=== PATIENT | female | born 1940 | race African-American/Black ===

== ENCOUNTER 2016-06-11 09:48 | Outpatient (RCR) ==
[2014-10-14 23:07] VITALS: BMI 28.3
[2016-07-10 13:25] VITALS: BP 144/60
== END 2016-07-10 ==
LOC: PUL.REHAB 09:48
PROVIDERS: ATTEND Emergency Medicine
DX: J44.9 Chronic obstructive pulmonary disease, unspecified (principal)

== ENCOUNTER 2016-07-11 07:55 | Outpatient (RCR) ==
[2014-10-14 23:07] VITALS: BMI 28.3
[2016-08-07 13:27] VITALS: BP 140/62
== END 2016-08-07 ==
LOC: PUL.REHAB 07:55
PROVIDERS: ATTEND Emergency Medicine
DX: J44.9 Chronic obstructive pulmonary disease, unspecified (principal)

== ENCOUNTER 2016-08-08 09:39 | Outpatient (RCR) ==
[2014-10-14 23:07] VITALS: BMI 28.3
[2016-09-06 13:16] VITALS: BP 148/66
== END 2016-09-07 ==
LOC: PUL.REHAB 09:39
PROVIDERS: ATTEND Emergency Medicine
DX: J44.9 Chronic obstructive pulmonary disease, unspecified (principal)

== ENCOUNTER 2016-09-08 07:00 | Outpatient (RCR) ==
[2014-10-14 23:07] VITALS: BMI 28.3
[2016-10-04 13:26] VITALS: BP 154/62
== END 2016-10-07 ==
LOC: PUL.REHAB 07:00
PROVIDERS: ATTEND Emergency Medicine
DX: J44.9 Chronic obstructive pulmonary disease, unspecified (principal)

== ENCOUNTER 2016-10-08 09:31 | Outpatient (RCR) ==
[2014-10-14 23:07] VITALS: BMI 28.3
[2016-11-06 13:18] VITALS: BP 132/58
== END 2016-11-07 ==
LOC: PUL.REHAB 09:31
PROVIDERS: ATTEND Emergency Medicine
DX: J44.9 Chronic obstructive pulmonary disease, unspecified (principal)

== ENCOUNTER 2016-11-08 06:57 | Outpatient (RCR) ==
[2014-10-14 23:07] VITALS: BMI 28.3
[2016-12-06 13:11] VITALS: BP 136/64
== END 2016-12-07 ==
LOC: PUL.REHAB 06:57
PROVIDERS: ATTEND Emergency Medicine
DX: J44.9 Chronic obstructive pulmonary disease, unspecified (principal)

== ENCOUNTER 2016-12-10 07:58 | Outpatient (RCR) ==
[2014-10-14 23:07] VITALS: BMI 28.3
[2017-01-03 13:23] VITALS: BP 142/58
== END 2017-01-07 ==
LOC: PUL.REHAB 07:58
PROVIDERS: ATTEND Emergency Medicine
DX: J44.9 Chronic obstructive pulmonary disease, unspecified (principal)

== ENCOUNTER 2017-01-08 07:22 | Outpatient (RCR) ==
[2014-10-14 23:07] VITALS: BMI 28.3
[2017-02-07 13:10] VITALS: BP 138/60
== END 2017-02-07 ==
LOC: PUL.REHAB 07:22
PROVIDERS: ATTEND Emergency Medicine
DX: J44.9 Chronic obstructive pulmonary disease, unspecified (principal)

== ENCOUNTER 2017-02-08 08:42 | Outpatient (RCR) ==
[2014-10-14 23:07] VITALS: BMI 28.3
[2017-02-26 14:01] VITALS: BP 172/68
== END 2017-03-09 ==
LOC: PUL.REHAB 08:42
PROVIDERS: ATTEND Emergency Medicine
DX: J44.9 Chronic obstructive pulmonary disease, unspecified (principal)

== ENCOUNTER 2017-04-10 09:01 | Outpatient (RCR) ==
[2014-10-14 23:07] VITALS: BMI 28.3
[2017-05-09 12:57] VITALS: BP 148/52
== END 2017-05-09 ==
LOC: PUL.REHAB 09:01
PROVIDERS: ATTEND Emergency Medicine
DX: J44.9 Chronic obstructive pulmonary disease, unspecified (principal)

== ENCOUNTER 2017-05-10 07:16 | Outpatient (RCR) ==
[2014-10-14 23:07] VITALS: BMI 28.3
[2017-06-06 12:54] VITALS: BP 144/58
== END 2017-06-09 ==
LOC: PUL.REHAB 07:16
PROVIDERS: ATTEND Emergency Medicine
DX: J44.9 Chronic obstructive pulmonary disease, unspecified (principal)

== ENCOUNTER 2017-06-11 07:17 | Outpatient (RCR) ==
[2014-10-14 23:07] VITALS: BMI 28.3
[2017-07-09 12:58] VITALS: BP 138/58
== END 2017-07-10 ==
LOC: PUL.REHAB 07:17
PROVIDERS: ATTEND Emergency Medicine
DX: J44.9 Chronic obstructive pulmonary disease, unspecified (principal)

== ENCOUNTER 2017-07-11 07:06 | Outpatient (RCR) ==
[2014-10-14 23:07] VITALS: BMI 28.3
[2017-08-06 14:10] VITALS: BP 134/56
== END 2017-08-07 ==
LOC: PUL.REHAB 07:06
PROVIDERS: ATTEND Emergency Medicine
DX: J44.9 Chronic obstructive pulmonary disease, unspecified (principal)

== ENCOUNTER 2017-08-08 06:46 | Outpatient (RCR) ==
[2014-10-14 23:07] VITALS: BMI 28.3
[2017-09-03 13:10] VITALS: BP 134/54
== END 2017-09-07 ==
LOC: PUL.REHAB 06:46
PROVIDERS: ATTEND Emergency Medicine
DX: J44.9 Chronic obstructive pulmonary disease, unspecified (principal)

== ENCOUNTER 2017-09-09 09:07 | Outpatient (RCR) ==
[2014-10-14 23:07] VITALS: BMI 28.3
[2017-10-01 12:57] VITALS: BP 146/56
== END 2017-10-07 23:59 ==
LOC: PUL.REHAB 09:07
PROVIDERS: ATTEND Emergency Medicine
DX: J44.9 Chronic obstructive pulmonary disease, unspecified (principal)

== ENCOUNTER 2017-10-08 07:09 | Outpatient (RCR) ==
[2014-10-14 23:07] VITALS: BMI 28.3
[2017-11-07 13:00] VITALS: BP 146/58
== END 2017-11-07 23:59 ==
LOC: PUL.REHAB 07:09
PROVIDERS: ATTEND Emergency Medicine
DX: J44.9 Chronic obstructive pulmonary disease, unspecified (principal)

== ENCOUNTER 2017-11-08 09:20 | Outpatient (RCR) ==
[2014-10-14 23:07] VITALS: BMI 28.3
[2017-12-05 13:00] VITALS: BP 146/56
== END 2017-12-07 23:59 ==
LOC: PUL.REHAB 09:20
PROVIDERS: ATTEND Emergency Medicine
DX: J44.9 Chronic obstructive pulmonary disease, unspecified (principal)

== ENCOUNTER 2017-12-09 07:59 | Outpatient (RCR) ==
[2014-10-14 23:07] VITALS: BMI 28.3
[2018-01-07 13:12] VITALS: BP 136/56
== END 2018-01-07 23:59 ==
LOC: PUL.REHAB 07:59
PROVIDERS: ATTEND Emergency Medicine
DX: J44.9 Chronic obstructive pulmonary disease, unspecified (principal)

== ENCOUNTER 2018-01-08 07:18 | Outpatient (RCR) ==
[2014-10-14 23:07] VITALS: BMI 28.3
[2018-02-06 13:08] VITALS: BP 130/56
== END 2018-02-07 23:59 ==
LOC: PUL.REHAB 07:18
PROVIDERS: ATTEND Emergency Medicine
DX: J44.9 Chronic obstructive pulmonary disease, unspecified (principal)

== ENCOUNTER 2018-02-11 07:18 | Outpatient (RCR) ==
[2014-10-14 23:07] VITALS: BMI 28.3
[2018-03-06 13:08] VITALS: BP 138/58
== END 2018-03-09 23:59 ==
LOC: PUL.REHAB 07:18
PROVIDERS: ATTEND Emergency Medicine
DX: J44.9 Chronic obstructive pulmonary disease, unspecified (principal)

== ENCOUNTER 2018-03-10 09:15 | Outpatient (RCR) ==
[2014-10-14 23:07] VITALS: BMI 28.3
[2018-04-08 12:56] VITALS: BP 136/60
== END 2018-04-09 23:59 ==
LOC: PUL.REHAB 09:15
PROVIDERS: ATTEND Emergency Medicine
DX: J44.9 Chronic obstructive pulmonary disease, unspecified (principal)

== ENCOUNTER 2018-05-12 08:03 | Outpatient (RCR) ==
[2014-10-14 23:07] VITALS: BMI 28.3
[2018-05-29 14:20] VITALS: BP 132/54
== END 2018-06-09 23:59 ==
LOC: PUL.REHAB 08:03
PROVIDERS: ATTEND Emergency Medicine
DX: J44.9 Chronic obstructive pulmonary disease, unspecified (principal)

== ENCOUNTER 2018-06-11 07:45 | Outpatient (RCR) ==
[2014-10-14 23:07] VITALS: BMI 28.3
[2018-07-10 13:19] VITALS: BP 138/56
== END 2018-07-10 23:59 ==
LOC: PUL.REHAB 07:45
PROVIDERS: ATTEND Emergency Medicine
DX: J44.9 Chronic obstructive pulmonary disease, unspecified (principal)

== ENCOUNTER 2018-07-11 07:23 | Outpatient (RCR) ==
[2014-10-14 23:07] VITALS: BMI 28.3
[2018-08-05 13:22] VITALS: BP 130/60
== END 2018-08-07 23:59 ==
LOC: PUL.REHAB 07:23
PROVIDERS: ATTEND Emergency Medicine
DX: J44.9 Chronic obstructive pulmonary disease, unspecified (principal)
CPT/HCPCS: 93797

== ENCOUNTER 2018-08-08 07:22 | Outpatient (RCR) ==
[2014-10-14 23:07] VITALS: BMI 28.3
[2018-09-04 13:58] VITALS: BP 146/56
== END 2018-09-07 23:59 ==
LOC: PUL.REHAB 07:22
PROVIDERS: ATTEND Emergency Medicine
DX: J44.9 Chronic obstructive pulmonary disease, unspecified (principal)
CPT/HCPCS: 93797

== ENCOUNTER 2018-09-06 15:01 | Emergency (ER) | payer OTHER ==
[2018-09-06 15:33] VITALS: BMI 28.0
--- NOTE | 2018-09-06 15:36 | ED.PDOC ---
General ED Provider: Dr. ALANA CHRIS Chief Complaint: Hip Pain/Injury Stated Complaint: Lt Hip Pain. Fell injuring lt hip; complains of pain. PT STATES WAS GOING TO BATHROOM, THE OTHER NITE, LOST BALANCE, FELL ON LEFT HIP ON TILE FLOOR. PT DENIES HITTING HEAD, NO LOC. PT STATES WAS UP ALL YESTERDAY WALKING AND HAD NO PAIN UNTIL LAST NITE AFTER GETTING INTO BED. NOW HAS PAIN TO LEFT HIP WITH MOVEMENT, NON WHILE SITTING STILL. PT STATES WITH MOVEMENT PAIN IS AN 8 AND A ZERO WHILE SITTING. Time Seen by Physician: 15:30 Mode of Arrival: Wheelchair Information Source: Patient, Family Exam Limitations: No limitations Primary Care Provider: JESSICA SHEEHAN Nursing and Triage Documentation Reviewed and Agree: Yes Does patient meet sepsis criteria?: No System Inflammatory Response Syndrome: Not Applicable Sepsis Protocol: For patient's 13 years and over: Temp is 96.8 and below OR 101 and greater Pulse >90 BPM Resp >20/minute Acutely Altered Mental Status Are patient's symptoms suggestive of a new infection, such as: -Pneumonia -Skin, Soft Tissue -Endocarditis -UTI -Bone, Joint Infection -Implantable Device -Acute Abdominal Infection -Wound Infection -Meningitis -Blood Stream Catheter Infection -Unknown Musculoskeletal Complaint Exam - Hip/Pelvis Complaint/Exam Location of Pain: Reports: Left, Hip Mechanism of Injury: Reports: Trauma Onset/Duration: 2 nights Symptoms Are: Still present Initial Severity: Moderate Current Severity: Moderate Location: Reports: Diffuse Character: Reports: Sharp, Aching, Stiffness Aggravating: Reports: Movement Alleviating: Reports: Rest, Position Associated Signs and Symptoms: Denies: Swelling, Redness, Bruising, Fever, Weakness, Dizziness, Syncope, Abdominal pain, Knee pain Related History: Denies: Similar episode Able to Bear Weight: Yes (Minimal) Septic Arthritis Risk Factors: Reports: None Related Surgical History: Reports: None Pelvis Palpation: Stable Hip/Pelvis Findings: Absent: Extremity shortened Tenderness: Present: Left, PSIS, Greater Trochanter Range of Motion Limited In: Present: External rotation NV Bundle Intact Distal to Injury: Yes Differential Diagnoses: Bursitis, Contusion, Strain Review of Systems - Review Of Systems Constitutional: Reports: No symptoms Eyes: Reports: No symptoms Ears, Nose, Mouth, Throat: Reports: No symptoms Respiratory: Reports: No symptoms Cardiac: Reports: No symptoms GI: Reports: No symptoms : Reports: No symptoms Musculoskeletal: Reports: Joint pain Skin: Reports: No symptoms Neurological: Reports: No symptoms Endocrine: Reports: No symptoms Hematologic/Lymphatic: Reports: No symptoms All Other Systems: Reviewed and Negative Past Medical History - Past Medical History Previously Healthy: Yes Endocrine: Reports: None Cardiovascular: Reports: None Respiratory: Reports: None Hematological: Reports: None Gastrointestinal: Reports: None Genitourinary: Reports: None Neuro/Psych: Reports: None Musculoskeletal: Reports: None Cancer: Reports: None Last Menstrual Period: HAS HAD A HYSTERECTOMY - Surgical History General Surgical History: Reports: None - Family History Family History: Reports: None - Social History Smoking Status: Former smoker Hx Substance Use: No Alcohol Screening: None - Immunizations Tetanus Shot up to Date: (UNKNOWN) Physical Exam - Physical Exam Appearance: Well-appearing, No pain distress, Well-nourished Ill-appearing: None Pain Distress: Mild Eyes: GENESIS, EOMI, Conjunctiva clear ENT: Ears normal, Nose normal, Oropharynx normal Respiratory: Airway patent, Breath sounds clear, Breath sounds equal, Respirations nonlabored Cardiovascular: RRR, Pulses normal, No rub, No murmur GI/: Soft, Nontender, No masses, Bowel sounds normal, No Organomegaly Musculoskeletal: Normal strength, ROM intact, No edema, No calf tenderness, Limited ROM Skin: Warm, Dry, Normal color Neurological: Sensation intact, Motor intact, Reflexes intact, Cranial nerves intact, Alert, Oriented Psychiatric: Affect appropriate, Mood appropriate Interpretation - Radiology Interpretation Radiology Interpretation By: Radiologist Radiology Results: Negative (deg disease hip no fracture) Critical Care Note - Critical Care Note Total Time (mins): 0 Course - Course Hematology/Chemistry: 09/06/18 15:49 09/06/18 15:49 Orders, Labs, Meds: Lab Review 09/06/18 09/06/18 09/06/18 15:49 15:49 16:55 WBC 4.46 L RBC 4.25 Hgb 13.3 Hct 40.5 MCV 95.3 MCH 31.3 H MCHC 32.8 RDW Coeff of Anthony 13.6 Plt Count 178 Immature Gran % (Auto) 0.2 Neut % (Auto) 35.9 Lymph % (Auto) 43.7 [place] % (Auto) 19.3 H Eos % (Auto) 0.2 Baso % (Auto) 0.7 Immature Gran # (Auto) 0.0 Neut # (Auto) 1.6 L Lymph # (Auto) 2.0 [place] # (Auto) 0.9 Eos # (Auto) 0.0 Baso # (Auto) 0.0 Sodium 140.2 Potassium 3.60 Chloride 105.1 Carbon Dioxide 25.4 Anion Gap 13.30 BUN 17.5 H Creatinine 1.06 Estimated GFR (MDRD) 61.00 BUN/Creatinine Ratio 16.50 Glucose 151.8 H Calcium 8.45 Total Bilirubin 0.55 AST 30.4 ALT 15.5 Alkaline Phosphatase 88.3 Total Protein 7.13 Albumin 4.18 Globulin 2.95 Albumin/Globulin Ratio 1.41 Urine Color Yellow Urine Clarity Cloudy Urine pH 5.5 Ur Specific [place] 1.025 Urine Protein 2+ Urine Glucose (UA) Negative Urine Ketones Trace Urine Blood Trace-lysed Urine Nitrite Positive Urine Bilirubin Negative Urine Urobilinogen 2.0 Ur Leukocyte Esterase 1+ Urine Microscopic RBC 0-2 Urine Microscopic WBC 10-20 Ur Squamous Epith Cells 5-10 Urine Bacteria 3+ Orders Category Date Time Status CBC W/ AUTO DIFF Stat LAB 09/06/18 15:49 Completed CMP [COMPREHENSIVE METABOLIC PANEL] Stat LAB 09/06/18 15:49 Completed UA [URINALYSIS C & S IF INDICATED] Stat LAB 09/06/18 16:55 Completed URINE CULTURE Stat LAB 09/06/18 16:55 Completed Acetaminophen [Tylenol] MEDS 09/06/18 18:59 Discontinued 650 mg PO ONCE STA Nitrofurantoin Monohyd/M-Cryst [Macrobid] MEDS 09/06/18 18:47 Discontinued 100 mg PO ONCE STA HIP, LEFT 2 VIEWS Stat RADS 09/06/18 15:35 Completed Medications Discontinued Medications Generic Name Dose Route Start Last Admin Trade Name Freq PRN Reason Stop Dose Admin Acetaminophen 650 mg 09/06/18 18:59 09/06/18 19:06 Tylenol PO 09/06/18 19:00 650 mg ONCE STA Administration Nitrofurantoin Macrocrystals 100 mg 09/06/18 18:47 09/06/18 19:01 Macrobid PO 09/06/18 18:48 100 mg ONCE STA Administration Vital Signs: Temp Pulse Resp BP Pulse Ox 09/06/18 18:35 99.5 F 68 20 166/70 H 98 09/06/18 15:02 100.3 F H 82 20 162/79 H 97 Departure - Departure Time of Disposition: 16:55 Disposition: HOME SELF-CARE Discharge Problem: Contusion of left hip and thigh, UTI (urinary tract infection) Instructions: Hip Contusion (ED) Condition: Good Pt referred to PMD for follow-up: Yes IPMP verified?: No Additional Instructions: Neck /Back /Hip Pain or Muscle Spasm: Apply ice to area of soreness for 20 min twice daily After 3 day alternate warm moist heat with Ice Tylenol 325 mg take 2 tabs 4 times daily for pain Follow up PCP in 1 week addendum-advised pt of pos UTI and recommended treatment Prescriptions: Nitrofurantoin Monohyd/M-Cryst [Macrobid 100 mg Capsule] 100 mg PO BID #20 capsule Allergies/Adverse Reactions: Allergies No Known Drug Allergies Adverse Reaction (Verified 09/06/18 15:33) Home Medications: Ambulatory Orders Clopidogrel Bisulfate [Plavix] 75 mg PO DAILY 10/14/14 Simvastatin [Zocor] 10 mg PO DAILY 10/14/14 Carvedilol [Coreg] 1 tab PO BIDWM 10/15/14 Cilostazol 1 tab PO BIDAC 10/15/14 Amlodipine Besylate [Norvasc] 5 mg PO DAILY #1 tablet 10/18/14 Valsartan [Diovan] 160 mg PO DAILY #30 tablet 10/18/14 Nitrofurantoin Monohyd/M-Cryst [Macrobid 100 mg Capsule] 100 mg PO BID #20 capsule 09/06/18 Disposition Discussed With: Patient, Family
--- NOTE | 2018-09-06 16:32 | DI ---
EXAM: Two views of the left hip HISTORY: Fall with pain. COMPARISON: None FINDINGS: There is narrowing and osteophyte formation of the left hip. There is no lytic or blastic lesion. Small osteophytes are present. Limited views of the pelvis are unremarkable. There is dege nerative change of the sacroiliac joints. Soft tissues are normal. IMPRESSION: Degenerative disease of the left hip with no displaced fracture or dislocation.
[2018-09-06 18:43] VITALS: BP 166/70; TEMP 99.5
[2018-09-06] MEDS ORDERED: MACROBID PO STA (18:47)
[2018-09-06] MEDS ORDERED: TORADOL PO STA (18:51)
[2018-09-06] MEDS ORDERED: TYLENOL PO STA (18:59)
== END 2018-09-06 19:30 | disposition home or self-care (01) ==
LOC: ED 15:01
DX: S70.02XA Contusion of left hip, initial encounter (principal); S70.12XA Contusion of left thigh, initial encounter; W19.XXXA Unspecified fall, initial encounter; N39.0 Urinary tract infection, site not specified
CPT/HCPCS: 36415; 80053; 81001; 85025; 87086; 87186; 99283

== ENCOUNTER 2018-09-08 10:32 | Outpatient (RCR) ==
[2018-10-07 12:58] VITALS: BP 148/56
== END 2018-10-07 23:59 ==
LOC: PUL.REHAB 10:32
PROVIDERS: ATTEND Internal Medicine
DX: J44.9 Chronic obstructive pulmonary disease, unspecified (principal)

== ENCOUNTER 2018-10-08 07:46 | Outpatient (RCR) ==
[2018-11-06 12:56] VITALS: BP 128/56
== END 2018-11-07 23:59 ==
LOC: PUL.REHAB 07:46
PROVIDERS: ATTEND Internal Medicine
DX: J44.9 Chronic obstructive pulmonary disease, unspecified (principal)

== ENCOUNTER 2019-01-08 07:30 | Outpatient (RCR) ==
[2019-02-03 13:08] VITALS: BP 138/62
== END 2019-02-07 23:59 ==
LOC: PUL.REHAB 07:30
PROVIDERS: ATTEND Internal Medicine
DX: J44.9 Chronic obstructive pulmonary disease, unspecified (principal)

== ENCOUNTER 2019-03-23 14:10 | Inpatient (IN) ==
[2019-03-23 14:57] VITALS: BMI 30.2
[2019-03-23] MEDS ORDERED: TYLENOL PO PRN (15:07)
[2019-03-23] MEDS ORDERED: VISTARIL INJ IM PRN (15:07)
[2019-03-23] MEDS ORDERED: ATROPINE SULFATE PFS IVP PRN (15:07)
[2019-03-23] MEDS ORDERED: NITROSTAT SL PRN (15:07)
[2019-03-23] MEDS: HUMULIN R SUBCUT PRN ×2 (18:26→21:16)
[2019-03-23] MEDS: ASPIRIN EC PO SCH (18:26)
[2019-03-23] MEDS: PLETAL PO SCH (18:26)
[2019-03-23] MEDS: ZOCOR PO SCH (20:23)
[2019-03-24] MEDS ORDERED: DOBUTAMINE 500 MG-D5W 250 ML 500 MG/250 ML BAG IV ONE (07:20)
--- NOTE | 2019-03-24 08:02 | DI ---
EXAM: Two views of the chest. History: Short of breath Comparison: Chest radiograph 10/14/2014 Findings: Heart size is within normal limits. No focal consolidation. No appreciable pleural fluid and no pneumothorax. No acute osseous abnormalities. Impression: No acute cardiopulmonary process
[2019-03-24] MEDS: ROCEPHIN 1 GM/50 ML D5W 1 GM/50 ML BAG IV SCH (10:52)
[2019-03-24] MEDS: GLUCOTROL XL PO SCH (10:56)
[2019-03-24] MEDS: TRADJENTA PO SCH (10:56)
[2019-03-24] MEDS: ASPIRIN EC PO SCH (10:56)
[2019-03-24] MEDS: NORVASC PO SCH (10:56)
[2019-03-24] MEDS: PLETAL PO SCH ×2 (10:56→17:55)
[2019-03-24] MEDS: PLAVIX PO SCH (10:57)
[2019-03-24] MEDS: COZAAR PO SCH (10:57)
--- NOTE | 2019-03-24 10:57 | NM ---
Cardiac Stress Test HISTORY: Chest pain. COMPARISON: None of this type. TECHNIQUE: Resting: The patient was injected with 3.5 mCi of thallium 201 chloride intravenously after which a "resting" SPECT study of the heart was performed. Stress: The patient was stressed pharmacologically with dobutamine and at the appropriate time injec [place] with 24.5 millicuries of 99m technetium Sestamibi (Cardiolite) after which a "stress" SPECT study of the heart was performed. Gated images of the heart were also obtained to assess wall motion and calculate ejection fraction. For details of the stress protocol employed, reference is made to the s eparate report of the performing physician. FINDINGS: The stress perfusion images demonstrate a generally uniform distribution of activity in th e left ventricular myocardium. The resting perfusion images demonstrate no evidence of significant r edistribution/ischemia. The left ventricular ejection fraction (LVEF) is 57%. IMPRESSION: 1. Left ventricular myocardial perfusion is within normal limits. 2. The left ventricular ejection fraction (LVEF) is 57%.
[2019-03-24] MEDS: ZOCOR PO SCH (18:02)
[2019-03-24] MEDS: HUMULIN R SUBCUT PRN (20:46)
[2019-03-25] MEDS: PLETAL PO SCH ×2 (05:43→17:18)
[2019-03-25] MEDS: ASPIRIN EC PO SCH (08:17)
[2019-03-25] MEDS: GLUCOTROL XL PO SCH (08:18)
[2019-03-25] MEDS: PLAVIX PO SCH (08:18)
[2019-03-25] MEDS: NORVASC PO SCH (08:18)
[2019-03-25] MEDS: COZAAR PO SCH (08:19)
[2019-03-25] MEDS: TRADJENTA PO SCH (08:19)
[2019-03-25] MEDS: ROCEPHIN 1 GM/50 ML D5W 1 GM/50 ML BAG IV SCH (09:04)
[2019-03-25] MEDS: HUMULIN R SUBCUT PRN ×3 (11:45→20:36)
[2019-03-25] MEDS: KEFLEX PO SCH ×2 (13:15→20:36)
[2019-03-25 15:13] VITALS: TEMP 98.3
[2019-03-25] MEDS: ZOCOR PO SCH (17:18)
[2019-03-26 05:28] VITALS: BP 141/66
[2019-03-26] MEDS: KEFLEX PO SCH (05:57)
[2019-03-26] MEDS: PLETAL PO SCH (05:57)
[2019-03-26] MEDS: HUMULIN R SUBCUT PRN ×2 (06:43→11:41)
[2019-03-26] MEDS: GLUCOTROL XL PO SCH (08:41)
[2019-03-26] MEDS: ASPIRIN EC PO SCH (08:41)
[2019-03-26] MEDS: TRADJENTA PO SCH (08:41)
[2019-03-26] MEDS: NORVASC PO SCH (08:41)
[2019-03-26] MEDS: PLAVIX PO SCH (08:41)
[2019-03-26] MEDS: COZAAR PO SCH (08:42)
--- NOTE | 2019-03-26 09:15 | DS ---
DATE OF SERVICE: 03/26/19 FINAL DIAGNOSIS: 1. CHEST PAIN 2. SHORTNESS OF AIR 3. UTI, E-COLI ORGANISM 4. DM TYPE 2, A1C 7.2 (OCT, 2018) 5. DYSLIPIDEMIA 6. PAD 7. HYPERTENSION 8. COPD 9. SEVERE PVD (50% LEFT, 80% RIGHT) 10.CKD 2 11.GENERAL ANXIETY DISORDER 12.LVH 13.METABOLIC SYNDROME 14.HISTORY OF SMOKING 15.HYSTERECTOMY LAST VITALS: Temp Pulse Resp BP Pulse Ox 98.3 F 79 18 141/66 H 95 03/26/19 05:26 03/26/19 05:26 03/26/19 05:26 03/26/19 05:26 03/26/19 05:26 DISCHARGE INSTRUCTIONS: DISCHARGE HOME. MAY RESUME PULMONARY REHAB. AN APPOINTMENT IS SCHEDULED WITH DR. SHEEHAN/MARGARETTE JACQUES APRN ON March AT 2:30 PM. CODE STATUS: DNR. TAKE THESE MEDICATIONS AT HOME: Amlodipine Besylate (Norvasc) 5 mg PO DAILY [facility] Cephalexin (Keflex) 500 mg PO Q8HR [facility] Cilostazol (Pletal) 100 mg PO BIDAC [facility] Clopidogrel Bisulfate (Plavix) 75 mg PO DAILY [facility] Glipizide (Glucotrol Xl) 10 mg PO DAILYWM [facility] Linagliptin (Tradjenta) 5 mg PO DAILY [facility] Losartan Potassium (Cozaar) 100 mg PO DAILY [facility] Simvastatin (Zocor) 20 mg PO 1800 [facility] ALLERGIES: No Known Drug Allergies Adverse Reaction (Verified 09/06/18 15:33) DISCONTINUED MEDICATIONS: NONE NEW PRESCRIPTIONS: KEFLEX 500 MG TID FOR 5 DAYS SMOKING: NOT APPLICABLE DISEASE SPECIFIC EDUCATION: DIET MEDICATION APPOINTMENT DIET: CONSISTENT CARBOHYDRATES LIMIT FRUIT TO ONE SERVING A DAY NO FRUIT JUICES REDUCE DAIRY PRODUCTS ACTIVITY: RESUME TOLERATED; USES ROLLATOR WITH AMBULATION HOSPITAL COURSE: The patient is a 78 year old black female hospitalized with shortness of breath and chest pain consistent with angina and severe coronary artery disease. The patient was monitored and did not have any chest pain. The patient's stress sestamibi was negative. The patient will be discharged home on the same medication. Cardiovascular status is stable. NO evidence of CHF. Diet counseling has been done. The patient was treated for UTI. She will be sent home with Keflex 500mg three times a day for 5 days. We will see her in 7 days in the office for a followup. TIME SPENT: More than 60 minutes. KAMLA
--- NOTE | 2019-03-26 09:16 | PN ---
03/23/19: Level 5 03/24/19: Intermediate 03/25/19: Intermediate 03/26/19: D as in discharge MTDD
--- NOTE | 2019-03-26 11:09 | CM.DICTOOL ---
ADMISSION: 03/23/19 14:10 DISCHARGE: MARCH 26, 2019 DATE OF SERVICE: 03/26/19 FINAL DIAGNOSIS CHEST PAIN SHORTNESS OF AIR UTI, E-COLI ORGANISM DM TYPE 2, A1C 7.2 (OCT, 2018) DYSLIPIDEMIA PAD HYPERTENSION COPD SEVERE PVD (50% LEFT, 80% RIGHT) CKD 2 GENERAL ANXIETY DISORDER LVH METABOLIC SYNDROME HISTORY OF SMOKING HYSTERECTOMY LAST VITALS Temp Pulse Resp BP Pulse Ox 98.3 F 79 18 141/66 H 95 03/26/19 05:26 03/26/19 05:26 03/26/19 05:26 03/26/19 05:26 03/26/19 05:26 TAKE THESE MEDICATIONS AT HOME Amlodipine Besylate (Norvasc) 5 mg PO DAILY [facility] Last Admin: 03/26/19 08:41 Dose: 5 mg Documented by: Cephalexin (Keflex) 500 mg PO Q8HR [facility] Stop: 03/28/19 12:59 Last Admin: 03/26/19 05:57 Dose: 500 mg Documented by: Cilostazol (Pletal) 100 mg PO BIDAC [facility] Last Admin: 03/26/19 05:57 Dose: 100 mg Documented by: Clopidogrel Bisulfate (Plavix) 75 mg PO DAILY [facility] Last Admin: 03/26/19 08:41 Dose: 75 mg Documented by: Glipizide (Glucotrol Xl) 10 mg PO DAILYWM [facility] Last Admin: 03/26/19 08:41 Dose: 10 mg Documented by: Linagliptin (Tradjenta) 5 mg PO DAILY [facility] Last Admin: 03/26/19 08:41 Dose: 5 mg Documented by: Losartan Potassium (Cozaar) 100 mg PO DAILY [facility] Last Admin: 03/26/19 08:42 Dose: 100 mg Documented by: Simvastatin (Zocor) 20 mg PO 1800 [facility] Last Admin: 03/25/19 17:18 Dose: 20 mg Documented by: ALLERGIES No Known Drug Allergies Adverse Reaction (Verified 09/06/18 15:33) DISCONTINUED MEDICATIONS NONE NEW PRESCRIPTIONS: NEW PRESCRIPTIONS KEFLEX 500 MG TID FOR 5 DAYS SMOKING: NOT APPLICABLE DISEASE SPECIFIC EDUCATION: DIET MEDICATION APPOINTMENT LAB REVIEW: 03/26/19 05:08 03/26/19 05:08 03/26/19 05:08: Sodium 138.9, Potassium 3.86, Chloride 106.6, Carbon Dioxide 25.7, Anion Gap 10.46, BUN 17.0, Creatinine 1.10, Estimated GFR (MDRD) 58.00, BUN/Creatinine Ratio 15.45, Glucose 131.2 H, Calcium 9.40, Total Bilirubin 0.77, AST 19.2, ALT 15.4, Alkaline Phosphatase 88.9, Total Protein 7.16, Albumin 3.88, Globulin 3.28, Albumin/Globulin Ratio 1.18 03/26/19 05:08: WBC 6.06, RBC 4.13 L, Hgb 13.3, Hct 39.4, MCV 95.4, MCH 32.2 H, MCHC 33.8, RDW Coeff of Anthony 13.2, Plt Count 194, Immature Gran % (Auto) 0.2, Neut % (Auto) 43.8, Lymph % (Auto) 40.3, [place] % (Auto) 9.6, Eos % (Auto) 5.4, Baso % (Auto) 0.7, Immature Gran # (Auto) 0.0, Neut # (Auto) 2.7, Lymph # (Auto) 2.4, [place] # (Auto) 0.6, Eos # (Auto) 0.3, Baso # (Auto) 0.0 PLAN: DISCHARGE HOME DIET: CONSISTENT CARBOHYDRATES LIMIT FRUIT TO ONE SERVING A DAY NO FRUIT JUICES REDUCE DAIRY PRODUCTS ACTIVITY: RESUME TOLERATED; USES ROLLATOR WITH AMBULATION MAY RESUME PULMONARY REHAB AN APPOINTMENT IS SCHEDULED WITH DR. SHEEHAN/MARGARETTE JACQUES APRN ON March AT 2:30 PM CODE STATUS: DNR MS. PETTY IS ALERT AND ORIENTED X 3. SHE AND THE DAUGHTER, JODY ARE AWARE OF DISCHARGE PLANS FOR TODAY. THE PATIENT IS AGREEABLE TO DISCHARGE FOR TODAY. DIET HAS BEEN DISCUSSED BY DR. SHEEHAN IN THE PRESENCE OF THE DAUGHTER. DR. SHEEHAN ADVISED DECREASING FRUITS, ELIMINATING FRUIT JUICES, MILK PRODUCTS WILL HELP IN CONTROLLING THE BLOOD SUGARS. MS. PETTY IS INDEPENDENT WITH ADL'S. SHE IS ABLE TO TRANSFER FROM THE BED TO THE CHAIR AND AMBULATE IN THE ROOM AND TO THE BATHROOM WITH USE OF HER ROLLATOR. SHE IS INDEPENDENT WITH FEEDING. MEAL INTAKES ARE GOOD AT 100%. MS. PETTY IS CONTINENT OF BOWEL AND BLADDER. SHE DENIES PAIN OR BURNING WITH URINATION. SKIN IS INTACT AND FREE OF DECUBITUS ULCERS. MD MARGARETTE PEDROZA APRN
--- NOTE | 2019-03-26 13:47 | ECHOSTRESS ---
Date of Exam: 03/24/19 Ordering Physician: DR. JESSICA SHEEHAN Reason for Echo: CHEST PAIN, HYPERTENSION, COPD, DM, DOBUTAMINE STRESS TEST--NO ISCHEMIA M-Mode Normal Adult Results LV Dimensions Normal Adult Results AoV Opening excursions >1.6 LVEDD-base- 3.5-5.8 Ao root dimensions 2.0-3.7 LVESD-base- 3.1-4.6 L. Atrium dimensions 1.9-3.8 Post. Wall thickness 0.8-1.1 IV septum (thickness) 0.7-1.2 Post. Wall excursion 0.72-1.3 Septal motion Systolic motion R. Ventricular cavity 1.5-2.0 LVEF 60% Paradoxical septal wall motion 2-D: NORMAL LEFT VENTRICULAR CONTRACTILITY--RESTING AND WITH DOBUTAMINE INFUSION M-MODE: MV: AV: TV: PV: CHAMBER SIZE: WALL MOTION: NORMAL LEFT VENTRICULAR CONTRACTILITY--RESTING AND WITH DOBUTAMINE INFUSION PERICARDIUM: INTERPRETATION: 1. NORMAL LEFT VENTRICULAR CONTRACTILITY--RESTING AND WITH DOBUTAMINE INFUSION MTDD
--- NOTE | 2019-03-26 14:17 | ECHO2D ---
Date of Exam: 03/24/19 Ordering Physician: DR. JESSICA SHEEHAN Room #: 103 Reason for Echo: CHEST PAIN, HTN, COPD, DM M-Mode Normal Adult Results LV Dimensions Normal Adult Results AoV Opening excursions >1.6 >1.6 LVEDD-base- 3.5-5.8 3.8 Ao root dimensions 2.0-3.7 2.9 LVESD-base- 3.1-4.6 L. Atrium dimensions 1.9-3.8 3.9 Post. Wall thickness 0.8-1.1 1.0 IV septum (thickness) 0.7-1.2 1.1 Post. Wall excursion 0.72-1.3 NORMAL Septal motion NORMAL Systolic motion R. Ventricular cavity 1.5-2.0 NORMAL LVEF 60% 65% Paradoxical septal wall motion NORMAL 2-D : 2-D M Mode Echocardiogram was performed using apical four chamber and left parasternal long and short axis views. Mitral, tricuspid and aortic valves appear to be normal. Contractility of the left ventricle seems to be normal, so is the cavity size. Left atrial cavity size and aortic root appear to be normal. There is no pericardial effusion. There is no thrombus noted in the left ventricle or left atrial cavity. No mitral valve prolapse noted. M-MODE: MV: NORMAL AV: NORMAL TV: NORMAL PV: CHAMBER SIZE: NORMAL WALL MOTION: NORMAL PERICARDIUM: NORMAL INTERPRETATION: 1. NORMAL 2 "D" "M" MODE ECHO MTDD
[2019-03-26] MEDS ORDERED: VERSED ONE (14:35)
--- NOTE | 2019-03-26 14:54 | PN ---
DATE OF SERVICE: 03/25/19 SUBJECTIVE: 78 year old black female hospitalized with chest pain and shortness of breath. The patient's condition is stable. She also has a UTI being treated with Rocephin. We are going to discontinue that and put her on Keflex. The patient's stress sestamibi was negative for ischemia. The patient is a poor historian. Several risk factors for coronary artery disease. REVIEW OF SYSTEMS: CONSTITUTIONAL: No night sweats. No fatigue, malaise, lethargy. No fever or chills. HEENT: Eyes: No visual changes. No eye pain. No eye discharge. ENT: No runny nose. No epistaxis. No sinus pain. No sore throat. No odynophagia. No congestion. RESPIRATORY: No cough, no congestion. No hemoptysis. No shortness of breath. CARDIOVASCULAR: No angina symptoms. No CHF symptoms. No atypical chest pain for CAD. No palpitations. No PND. No orthopnea. GASTROINTESTINAL: No abdominal pain. No nausea or vomiting. No diarrhea or constipation. No hematemesis. No hematochezia. GENITOURINARY: No urgency. No frequency. No dysuria. No hematuria. No obstructive symptoms. No discharge. No pain. No significant abnormal bleeding. MUSCULOSKELETAL: No musculoskeletal pain; no joint swelling. NEUROLOGICAL: No headache. No neck pain. No syncope. No seizures. No dizziness. PSYCHIATRIC: Not anxious. No depression. No suicidal thoughts. No homicidal thoughts. SKIN: No rash. No lesions. No wounds. ENDOCRINE: No unexplained weight loss. No weight gain. HEMATOLOGIC/LYMPHATIC: No anemia. No purpura. No petechiae. No prolonged or excessive bleeding. No palpable lymph nodes. PHYSICAL EXAMINATION: VITAL SIGNS: Temperature 98, pulse 84, respiratory rate 16, blood pressure 144/70 and pulse ox 96%. HEENT: Head normocephalic, atraumatic. Eyes: Extraocular muscles are intact. Pupils are equal, round and reactive to light and accommodation. Ears: No lesions. Nose appeared normal. Throat: No exudate or erythema. NECK: Supple. No JVD, no carotid bruit. No lymphadenopathy or thyromegaly. LUNGS: Decreased breath sounds but clear to auscultation. Percussion note normal. Chest symmetrical. HEART: S1, S2, no S3. No murmurs. No cyanosis or clubbing. No ascites. Pulses: Dorsalis pedis and posterior tibial pulses +1 to +2 bilaterally. ABDOMEN: Soft. Nontender. Bowel sounds active. No CVA tenderness. No mass felt. EXTREMITIES: No edema. Full range of motion of all extremities, equal. NEUROLOGIC: No focal deficit. Cranial nerves II through XII are grossly intact. No headache, no double vision or headache. SKIN: Not dry. Intact. Turgor - normal. LYMPHATIC: No palpable lymph nodes/no lymphedema. MUSCULOSKELETAL: Normal joints with no swelling. Muscle tone is normal. LABS: Hgb 12.4, hct 36, WBC 6,100 normal differential, creatinine 0.9, BUN 15, potassium 3.8 ASSESSMENT: 1. Chest pain seems to be noncardiac. Stress sestamibi negative 2. Shortness of breath from sedentary lifestyle 3. UTI being treated with Rocephin now on Keflex CONDITION: Stable TIME SPENT: More than 30 minutes. Plan and coordination of the patient's care discussed in the presence of nurse. KAMLA
--- NOTE | 2019-03-27 12:15 | DOBSTECHST ---
Ordering Physician: DR. JESSICA SHEEHAN Date of Test: 03/24/19 Reason for Examination: CHEST PAIN, HTN, COPD, DM Smoking History: QUIT 3 MONTHS AGO Height: 62" Weight: 165 LBS Current Medications: PLAVIX, SIMVASTATIN, CILOSTAZAL, CARVEDILOL, AMLODIPINE, ATROPINE, HUMULIN Target Heart Rate: 119/141 S-T Segment Stage Time HR BPM BP MMHG Rhythm +/- Elevation Depression Symptoms Control Sitting 75 BPM 128/60 SR X NONE Dobutamine 250mg/D5W 5cmg/KG/mn 10cmg/KG/mn 3:00 93 BPM 154/58 SR X NONE 15cmg/KG/mn 1:46 130 BPM SR X NONE 20cmg/KG/mn 25cmg/KG/mn 30cmg/KG/mn 35cmg/KG/mn 40cmg/KG/mn 6 MIN POST INFUSION 106 180/50 SR X NONE 14 MIN POST INFUSION 88 152/64 SR X NONE DURATION OF INFUSION 4:46 MAXIMUM HEART RATE REACHED 130 BPM 99% OXYGEN SATURATION ON ROOM AIR WITH DOBUTAMINE INFUSION Interpretation: 1. NO EVIDENCE OF ISCHEMIC ST-T WAVE CHANGES 2. NO CHEST PAIN OR DISCOMFORT 3. LEFT VENTRICULAR CONTRACTILITY--RESTING AND WITH DOBUTAMINE INFUSION SESTAMIBI TO FOLLOW MTDD
--- NOTE | 2019-03-27 13:35 | PN ---
DATE OF SERVICE: 03/26/19 DISCHARGE NOTE SUBJECTIVE: 78 year old Black female hospitalized with chest pain. The patient's chest pain seems to be consistent with angina but on further questioning which the patient is very poor historian sounds like noncardiac. In any case she had Dobutamine Stress Echo Sestamibi which was negative for ischemia. The patient's overall condition is stable. She is asymptomatic for CHF and CAD. REVIEW OF SYSTEMS: CONSTITUTIONAL: No night sweats. No fatigue, malaise, lethargy. No fever or chills. HEENT: Eyes: No visual changes. No eye pain. No eye discharge. ENT: No runny nose. No epistaxis. No sinus pain. No sore throat. No odynophagia. No congestion. RESPIRATORY: No cough, no congestion. No hemoptysis. No shortness of breath. CARDIOVASCULAR: No angina symptoms. No CHF symptoms. No atypical chest pain for CAD. No palpitations. No PND. No orthopnea. GASTROINTESTINAL: No abdominal pain. No nausea or vomiting. No diarrhea or constipation. No hematemesis. No hematochezia. GENITOURINARY: No urgency. No frequency. No dysuria. No hematuria. No obstructive symptoms. No discharge. No pain. No significant abnormal bleeding. MUSCULOSKELETAL: No musculoskeletal pain; no joint swelling. NEUROLOGICAL: No headache. No neck pain. No syncope. No seizures. No dizziness. PSYCHIATRIC: Not anxious. No depression. No suicidal thoughts. No homicidal thoughts. SKIN: No rash. No lesions. No wounds. ENDOCRINE: No unexplained weight loss. No weight gain. HEMATOLOGIC/LYMPHATIC: No anemia. No purpura. No petechiae. No prolonged or excessive bleeding. No palpable lymph nodes. PHYSICAL EXAMINATION: VITAL SIGNS: Temperature 98.2, pulse 84, respiratory rate 18, blood pressure 144/70 and pulse ox 96%. HEENT: Head normocephalic, atraumatic. Eyes: Extraocular muscles are intact. Pupils are equal, round and reactive to light and accommodation. Ears: No lesions. Nose appeared normal. Throat: No exudate or erythema. NECK: Supple. No JVD, no carotid bruit. No lymphadenopathy or thyromegaly. LUNGS: Clear to auscultation. Percussion note normal. Chest symmetrical. HEART: S1, S2, no S3. No murmurs. No cyanosis or clubbing. No ascites. Pulses: Dorsalis pedis and posterior tibial pulses +1 to +2 bilaterally. ABDOMEN: Soft. Nontender. Bowel sounds active. No CVA tenderness. No mass felt. EXTREMITIES: No edema. Full range of motion of all extremities, equal. NEUROLOGIC: No focal deficit. Cranial nerves II through XII are grossly intact. No headache, no double vision or headache. SKIN: Not dry. Intact. Turgor - normal. LYMPHATIC: No palpable lymph nodes/no lymphedema. MUSCULOSKELETAL: Normal joints with no swelling. Muscle tone is normal. LABS: Hgb 12.4, hct 36, glucose 167. PLAN: 1. Strongly advised to discontinue alot of fruits and juices and to control blood sugar a little better. TIME SPENT: More than 30 minutes. Plan and coordination of the patient's care discussed in the presence of nurse. KAMLA
--- NOTE | 2019-03-27 13:36 | PN ---
03/23/19: Level 5 03/24/19: Intermediate 03/25/19: Intermediate 03/26/19: D as in discharge MTDD
--- NOTE | 2019-04-08 09:09 | HP ---
DATE OF SERVICE: 03/23/19 REASON FOR HOSPITALIZATION/HISTORY OF PRESENT ILLNESS: Doing well. Last month had chest pain-none since walking and at rest but not anymore. PAST MEDICAL HISTORY: Diabetes mellitus type 2 Dyslipidemia PAD Hypertension COPD Chronic kidney disease stage 2 DEANNA LVH Met syndrome PAST SURGICAL HISTORY: Hysterectomy REVIEW OF SYSTEMS: CONSTITUTIONAL: No fever, no fatigue. HEENT: No sinus drainage, no sore throat. RESPIRATORY: No cough, no congestion. CARDIOVASCULAR: No atypical chest pain for coronary artery disease. Angina symptoms one month ago, CHF symptoms, palpitations or shortness of breath. GASTROINTESTINAL: No melena or abdominal pain. No GERD. GENITOURINARY: No hematuria, no prostatism, no polyuria. NETWORK COORDINATOR: No blackout, no dizziness, no headache, no double vision. MUSCULOSKELETAL: Osteoarthritis pain, no joint swelling. ENDOCRINE: No weight loss, Weight gain of 8 pounds. SKIN: Not dry, no rash. PSYCHIATRIC: Not anxious, no depression, no suicidal thoughts, no homicidal thoughts. SOCIAL HISTORY: Marital Status: . Alcohol Usage: No, quit. Tobacco Usage: No. FAMILY HISTORY: Father Mother Brother 3 Sister 6 MEDICATIONS: Tradjenta 5 mg PO daily Glipizide 10mg PO daily before meals Losartan 100mg PO daily Plavix 75mg PO daily Amlodipine 10mg PO daily Cilostazol 100mg PO two times per day 1/2 hour before or 2 hours after breakfast and dinner. Simvastatin 20mg PO daily in the evening ALLERGIES: No known allergies PHYSICAL EXAMINATION: V/S: Pulse 96, blood pressure 154/66, pulse ox 97%. Height 5'2, BMI 30.2, weight 165.0. GENERAL APPEARANCE: Oriented times three. HEENT: Normal. NECK: No JVP, no bruits. RESPIRATORY: Decreased breath sounds. CARDIOVASCULAR: S1, S2, no S3, no murmur. No cyanosis, clubbing. No ascites. GI/ABDOMEN: No tenderness. Bowel sounds are active. EXTREMITIES: Trace pedal edema, pulses +1, equal. NETWORK COORDINATOR: Deep tendon reflexes, sensory, motor and gait all normal. RECTAL: 2010 refused repeat/PELVIC: 12/16 refused repeat mammography. ASSESSMENT: 1. Chest pain 2. Diabetes Mellitus type 2 A1c 7.2 10/26 3. Dyslipidemia 4. PAD-Dr. Frances Q 6 months 5. Hypertension 6. COPD 7. Severe PVD 50% left 80% right 8. Chronic kidney disease, stage 2 9. DEANNA 10.LVH 11.Met syndrome 12.History of smoking 13.Pulmonary rehab two times in half-way PLAN: 1. Admit 2. Routine telemetry 3. Continue all home medications 4. Sliding scale coverage 5. Echo 2D 6. Dobutamine stress echo sestamibi Saturday 7. Regular diet 8. Chest x-ray 9. PFT wait till 10.CBC/CMP now and daily 11.A1c times one 12.T4 TSH times one TIME SPENT: More than 70 minutes. MTDD
== END 2019-03-26 13:10 | disposition home or self-care (01) | DRG 690 ==
LOC: MEDSURG A 14:10
PROVIDERS: ADMIT Internal Medicine; ATTEND Internal Medicine

== ENCOUNTER 2019-07-23 13:19 | Observation (INO) ==
--- NOTE | 2019-07-23 15:45 | ED.PDOC ---
General ED Provider: Dr. ALANA CHRIS Chief Complaint: Hypertension Stated Complaint: BP has been running high. Sent here from Cardiac rehab. Currently take cozar/previously took Diovan Denies other complaints Time Seen by Physician: 15:30 Mode of Arrival: Walk-In Information Source: Patient Exam Limitations: No limitations Primary Care Provider: JESSICA MARKHAM Nursing and Triage Documentation Reviewed and Agree: Yes Does patient meet sepsis criteria?: No System Inflammatory Response Syndrome: Not Applicable Sepsis Protocol: For patient's 13 years and over: Temp is 96.8 and below OR 101 and greater Pulse >90 BPM Resp >20/minute Acutely Altered Mental Status Are patient's symptoms suggestive of a new infection, such as: -Pneumonia -Skin, Soft Tissue -Endocarditis -UTI -Bone, Joint Infection -Implantable Device -Acute Abdominal Infection -Wound Infection -Meningitis -Blood Stream Catheter Infection -Unknown Cardiovascular Complaint Exam Hypertension Complaint/Exam Symptoms Are: Resolved Timing: Intermittent Aggravating: Reports Exertion Alleviating: Reports Rest and Position Associated Signs and Symptoms: Reports Dizziness; Denies Chest pain, Vision changes, Anxiety, Recent stress, Headache, Numbness, Tingling, Weakness, Short of air and Swelling Related History: Reports Similar episode and Current ARBs Related Surgical History: Reports None Cardiac Risk Factors: Reports Hypertension, Diabetes, Elevated lipids and Family history Recent Change in Medications: Yes A/V Nicking: No Papilledema Present: No JVD Present: No Carotid Bruit Present: No Femoral Pulses Bounding: No Differential Diagnoses: Hypertension and Hypertensive Urgency Quality Indicator For Non-Traumatic Chest Pain/Syncope: EKG Performed Review of Systems Review Of Systems Constitutional: Reports No symptoms Eyes: Reports No symptoms Ears, Nose, Mouth, Throat: Reports No symptoms Respiratory: Reports No symptoms Cardiac: Reports No symptoms GI: Reports No symptoms : Reports No symptoms Musculoskeletal: Reports No symptoms Skin: Reports No symptoms Neurological: Reports No symptoms Endocrine: Reports No symptoms Hematologic/Lymphatic: Reports No symptoms All Other Systems: Reviewed and Negative PFSH Family History (Updated 03/23/19 @ 15:26 by AYO GARDNER RN) Mother Diabetes Mother Arrhythmia Social History (Updated 07/23/19 @ 20:42 by IRON KAHN) Smoking and tobacco status: Former smoker Smoking status stop date: 12/08/18 Alcohol intake: never History of recent travel: No Female Reproductive History Menstrual Hx Hysterectomy: Yes Hx Tubal Ligation: No Physical Exam Physical Exam Appearance: Reports Well-appearing, No pain distress and Well-nourished Ill-appearing: None Pain Distress: None Eyes: Reports GENESIS, EOMI and Conjunctiva clear ENT: Reports Ears normal, Nose normal and Oropharynx normal Neck: Supple Respiratory: Reports Airway patent, Breath sounds clear, Breath sounds equal and Respirations nonlabored Cardiovascular: Reports RRR, Pulses normal, No rub and No murmur GI/: Reports Soft, Nontender, No masses, Bowel sounds normal and No Organomegaly Musculoskeletal: Reports Normal strength, ROM intact, No edema and No calf tenderness Skin: Reports Warm, Dry and Normal color Neurological: Reports Sensation intact, Motor intact, Reflexes intact, Cranial nerves intact, Alert and Oriented Psychiatric: Reports Affect appropriate and Mood appropriate Physician Notification Case Discussed Physician Notified: Dr Markham Time of Notification: 18:00 Critical Care Note Critical Care Note Total Time (mins): 60 Course Course Hematology/Chemistry: 07/23/19 15:56 07/23/19 15:56 Orders, Labs, Meds: Lab Review 07/23/19 07/23/19 15:56 15:56 WBC 6.10 RBC 4.38 Hgb 14.0 Hct 41.5 MCV 94.7 MCH 32.0 H MCHC 33.7 RDW Coeff of Anthony 12.8 Plt Count 227 Immature Gran % (Auto) 0.3 Neut % (Auto) 53.1 Lymph % (Auto) 34.4 Leake % (Auto) 8.9 Eos % (Auto) 2.8 Baso % (Auto) 0.5 Immature Gran # (Auto) 0.0 Neut # (Auto) 3.2 Lymph # (Auto) 2.1 [place]ake # (Auto) 0.5 Eos # (Auto) 0.2 Baso # (Auto) 0.0 Sodium 140.1 Potassium 3.60 Chloride 104.8 Carbon Dioxide 29.1 Anion Gap 9.80 BUN 13.6 Creatinine 0.82 Estimated GFR (MDRD) 81.00 BUN/Creatinine Ratio 16.58 Glucose 253.9 H Calcium 9.22 Total Bilirubin 0.64 AST 25.4 ALT 14.6 Alkaline Phosphatase 87.6 Total Protein 7.67 Albumin 4.24 Globulin 3.43 Albumin/Globulin Ratio 1.23 Orders Category Date Time Status ADMIT PATIENT INPATIENT .TO [facility] (MONITORED BED) ADMISSION 07/23/19 18:46 Active EKG-(ED ONLY) Stat CARDIO 07/23/19 15:45 Completed ACTIVITY .BR with BRP CARE 07/23/19 19:02 Active BLOOD GLUCOSE MONITORING 0630,1100,1700,2100 CARE 07/23/19 19:03 Active INTAKE & OUTPUT Q8HR CARE 07/23/19 19:02 Active TELEMETRY MONITORING TELE CARE 07/23/19 18:47 Active VITAL SIGNS Q4HR CARE 07/23/19 19:02 Active 2 GRAM SODIUM DIET DIETARY 07/23/19 Dinner Ordered IV [ED IV/MEDIPORT/POWERPORT] .ONCE EMERGENCY 07/23/19 19:04 Active BASIC METABOLIC PANEL DAILY@0600 LAB 07/24/19 06:00 Ordered BASIC METABOLIC PANEL DAILY@0600 LAB 07/25/19 06:00 Ordered CBC W/ AUTO DIFF DAILY@0600 LAB 07/24/19 06:00 Ordered CBC W/ AUTO DIFF DAILY@0600 LAB 07/25/19 06:00 Ordered CBC W/ AUTO DIFF Stat LAB 07/23/19 15:56 Completed CMP [COMPREHENSIVE METABOLIC PANEL] Stat LAB 07/23/19 15:56 Completed 0.9 % Sodium Chloride [Saline Flush] MEDS 07/23/19 19:04 Active 1 syr IVF PRN PRN Amlodipine Besylate [Norvasc] MEDS 07/24/19 09:00 Active 10 mg PO DAILY Cilostazol [Pletal] MEDS 07/24/19 06:30 Active 100 mg PO BIDAC Clopidogrel Bisulfate [Plavix] MEDS 07/24/19 09:00 Active 75 mg PO DAILY Glipizide [Glucotrol Xl] MEDS 07/24/19 09:00 Active 10 mg PO DAILY Hydralazine HCl [Apresoline] MEDS 07/23/19 19:01 Discontinued 25 mg PO ONCE STA Linagliptin [Tradjenta] MEDS 07/24/19 09:00 Active 5 mg PO DAILY Simvastatin [Zocor] MEDS 07/24/19 18:00 Active 20 mg PO 1800 Valsartan [Diovan] MEDS 07/23/19 19:06 Discontinued 160 mg PO ONCE STA RESUSCITATION STATUS Routine OTHERS 07/23/19 19:02 Ordered CHEST, 1V AP ONLY Stat RADS 07/23/19 15:46 Completed PT CONSULT Routine THERAPIES 07/23/19 Ordered Medications Generic Name Dose Route Start Last Admin Trade Name Freq PRN Reason Stop Dose Admin Amlodipine Besylate 10 mg 07/24/19 09:00 Norvasc PO DAILY SUNIL Cilostazol 100 mg 07/24/19 06:30 Pletal PO BIDAC SUNIL Clopidogrel Bisulfate 75 mg 07/24/19 09:00 Plavix PO DAILY SUNIL Glipizide 10 mg 07/24/19 09:00 Glucotrol Xl PO DAILY SUNIL Linagliptin 5 mg 07/24/19 09:00 Tradjenta PO DAILY SUNIL Simvastatin 20 mg 07/24/19 18:00 Zocor PO 1800 SUNIL Sodium Chloride 1 syr 07/23/19 19:04 Saline Flush IVF PRN PRN To flush IV Discontinued Medications Generic Name Dose Route Start Last Admin Trade Name Freq PRN Reason Stop Dose Admin Hydralazine HCl 25 mg 07/23/19 19:01 Apresoline PO 07/23/19 19:02 ONCE STA Valsartan 160 mg 07/23/19 19:06 Diovan PO 07/23/19 19:07 ONCE STA Vital Signs: Temp Pulse Resp BP Pulse Ox 07/23/19 17:57 162/68 H 07/23/19 13:19 99.3 F 96 H 16 173/75 H 95 SOSA Risk Score SOSA Risk Score: Risk Score Odds of by 30D 0 0.1 (0.1-0.2) 1 0.3 (0.2-0.3) 2 0.4 (0.3-0.5) 3 0.7 (0.6-0.9) 4 1.2 (1.0-1.5) 5 2.2 (1.9-2.6) 6 3.0 (2.5-3.6) 7 4.8 (3.8-6.1)
[2019-07-23 15:58] LABS: HEMATOCRIT 41.5 % (37.0-47.0)
--- NOTE | 2019-07-23 16:36 | DI ---
EXAM: CHEST FRONTAL VIEW HISTORY: Elevated blood pressure. COMPARISON: 03/23/2019 FINDINGS: Heart size and mediastinum remain within normal limits. Lungs are free of infiltrate. No consolidation or pleural fluid. There is no pneumothorax or acute bony finding. IMPRESSION: No acute cardiopulmonary process.
[2019-07-23] MEDS ORDERED: APRESOLINE PO STA (19:01)
[2019-07-23] MEDS ORDERED: DIOVAN PO STA (19:06)
[2019-07-23] MEDS ORDERED: LOVENOX SUBCUT SCH (19:30)
[2019-07-23 20:43] VITALS: BMI 28.2
[2019-07-24] MEDS ORDERED: PLETAL PO SCH (06:30)
[2019-07-24 06:46] LABS: HEMATOCRIT 40.4 % (37.0-47.0)
[2019-07-24] MEDS ORDERED: GLUCOTROL XL PO SCH ×2 (08:00→09:00)
--- NOTE | 2019-07-24 08:57 | PCM.PROG ---
Attending Provider: ATTENDING PROVIDER: Dr. JESSICA SHEEHAN DATE OF SERVICE: 07/24/19 SUBJECTIVE: This 79 year old AA/BLACK F was hospitalized 07/23/19 with uncontrolled hypertension, asymptomatic. REVIEW OF SYSTEMS: CONSTITUTIONAL: No night sweats. No fatigue, malaise, lethargy. No fever or chills. HEENT: Eyes: No visual changes. No eye pain. No eye discharge. ENT: No runny nose. No epistaxis. No sinus pain. No odynophagia. No congestion. RESPIRATORY: No cough, no congestion. No hemoptysis. No shortness of breath. CARDIOVASCULAR: No angina symptoms. No CHF symptoms. No atypical chest pain for CAD. No palpitations. No orthopnea.. GASTROINTESTINAL: No abdominal pain. No nausea or vomiting. No diarrhea or constipation. No hematemesis. No hematochezia. GENITOURINARY: No urgency. No frequency. No dysuria. No hematuria. No obstructive symptoms. No discharge. No pain. No significant abnormal bleeding. MUSCULOSKELETAL: No musculoskeletal pain; no joint swelling. NEUROLOGICAL: Awake, alert, oriented to time, place and person. No headache. No neck pain. No syncope. No seizures. No dizziness. PSYCHIATRIC: Not anxious. No depression. No suicidal thoughts. No homicidal thou ghts. SKIN: No rash. No lesions. No wounds. ENDOCRINE: No unexplained weight loss. No weight gain. HEMATOLOGIC/LYMPHATIC: No anemia. No purpura. No petechiae. No prolonged or excessive bleeding. No palpable lymph nodes. PHYSICAL EXAMINATION: GENERAL: The patient is awake, alert and oriented, lying/sitting in bed in no distress. VITAL SIGNS: Temperature 97.8 F, Pulse 85, Respiratory Rate 14, BP 164/81, Pulse Ox 97% HEENT: Head normocephalic, atraumatic. Eyes: Extraocular muscles are intact. Pupils are equal, round and reactive to light and accommodation. Ears: No lesions. Nose appeared normal. Throat: No exudate or erythema. NECK: Supple. No JVD, no carotid bruit. No lymphadenopathy or thyromegaly. LUNGS: Clear to auscultation. Percussion note normal. Chest symmetrical. HEART: S1, S2, no S3. No murmurs. No cyanosis or clubbing. No ascites. Pu lses: Dorsalis pedis and posterior tibial pulses feeble bilaterally. Lower extremities warm bilaterally. ABDOMEN: Soft. Non-tender. Bowel sounds active. No CVA tenderness. No mass felt. EXTREMITIES: No edema. Full range of motion of all extremities, equal. NEUROLOGIC: No focal deficit. Cranial nerves II through XII are grossly intact. No headache, no double vision or headache. SKIN: Warm and dry. Intact. Turgor-normal. LYMPHATIC: No palpable lymph nodes/no lymphedema. MUSCULOSKELETAL: Normal joints with no swelling. Muscle tone is normal. LAB REVIEW: 07/24/19 06:27 07/24/19 06:27 07/24/19 06:27: Sodium 140.1, Potassium 3.62, Chloride 107.8 H, Carbon Dioxide 24.0, Anion Gap 11.92, BUN 14.0, Creatinine 0.82, Estimated GFR (MDRD) 81.00, BUN/Creatinine Ratio 17.07, Glucose 208.9 H, Calcium 8.88 07/24/19 06:27: WBC 5.71, RBC 4.27, Hgb 13.8, Hct 40.4, MCV 94.6, MCH 32.3 H, MCHC 34.2, RDW Coeff of Anthony 13.0, Plt Count 229, Immature Gran % (Auto) 0.2, Neut % (Auto) 52.9, Lymph % (Auto) 33.6, [place] % (Auto) 8.9, Eos % (Auto) 3.7, Baso % (Auto) 0.7, Immature Gran # (Auto) 0.0, Neut # (Auto) 3.0, Lymph # (Auto) 1.9, [place] # (Auto) 0.5, Eos # (Auto) 0.2, Baso # (Auto) 0.0 07/23/19 15:56: Sodium 140.1, Potassium 3.60, Chloride 104.8, Carbon Dioxide 29.1, Anion Gap 9.80, BUN 13.6, Creatinine 0.82, Estimated GFR (MDRD) 81.00, BUN/Creatinine Ratio 16.58, Glucose 253.9 H, Calcium 9.22, Total Bilirubin 0.64, AST 25.4, ALT 14.6, Alkaline Phosphatase 87.6, Total Protein 7.67, Albumin 4.24, Globulin 3.43, Albumin/Globulin Ratio 1.23 07/23/19 15:56: WBC 6.10, RBC 4.38, Hgb 14.0, Hct 41.5, MCV 94.7, MCH 32.0 H, MCHC 33.7, RDW Coeff of Anthony 12.8, Plt Count 227, Immature Gran % (Auto) 0.3, Neut % (Auto) 53.1, Lymph % (Auto) 34.4, [place] % (Auto) 8.9, Eos % (Auto) 2.8, Baso % (Auto) 0.5, Immature Gran # (Auto) 0.0, Neut # (Auto) 3.2, Lymph # (Auto) 2.1, [place] # (Auto) 0.5, Eos # (Auto) 0.2, Baso # (Auto) 0.0 ASSESSMENT: UNCONTROLLED HYPERTENSION PLAN: 1. Restart Diovan Hydrochlorothiazide 320/12.5 mg daily. 2. Give Amlodipine 10 mg at night. 3. Continue telemetry. 4. Continue to monitor blood pressure. 5. Counseling for diet done. 6. Anticipate discharge tomorrow. Plan and coordination of the patient's care discussed in the presence of Resource Engineer and nurse. CONDITION: Stable SCRIBED BY: AYESHA MARAVILLA [employer] Developer scribed while in presence of service performed by Dr. JESSICA SHEEHAN on 07/24/19 ([id number])
[2019-07-24] MEDS ORDERED: NORVASC PO SCH ×2 (09:00→21:00)
[2019-07-24] MEDS ORDERED: TRADJENTA PO SCH (09:00)
[2019-07-24] MEDS ORDERED: PLAVIX PO SCH (09:00)
[2019-07-24] MEDS: DIOVAN PO SCH (09:55)
[2019-07-24] MEDS: HYDROCHLOROTHIAZIDE PO SCH (09:59)
--- NOTE | 2019-07-24 13:25 | PN ---
DATE OF SERVICE: 07/23/19 SUBJECTIVE: The patient was hospitalized because of severe hypertension. The patient is attending pulmonary rehab at the time she was noted to have blood pressure in the range of 180 to 210. The patient was in a way practically asymptomatic. The daughter was present in the Emergency Room and insisted on the patient being kept and watched. PHYSICAL EXAMINATION: (Reported as unremarkable) HEENT: Head normocephalic, atraumatic. Eyes: Extraocular muscles are intact. Pupils are equal, round and reactive to light and accommodation. Ears: No lesions. Nose appeared normal. Throat: No exudate or erythema. NECK: Supple. No JVD, no carotid bruit. No lymphadenopathy or thyromegaly. LUNGS: Clear to auscultation. Percussion note normal. Chest symmetrical. HEART: S1, S2, no S3. No murmurs. No cyanosis or clubbing. No ascites. Pulses: Dorsalis pedis and posterior tibial pulses +1 to +2 bilaterally. ABDOMEN: Soft. Nontender. Bowel sounds active. No CVA tenderness. No mass felt. EXTREMITIES: No edema. Full range of motion of all extremities, equal. NEUROLOGIC: No focal deficit. Cranial nerves II through XII are grossly intact. No headache, no double vision or headache. SKIN: Not dry. Intact. Turgor - normal. LYMPHATIC: No palpable lymph nodes/no lymphedema. MUSCULOSKELETAL: Normal joints with no swelling. Muscle tone is normal. PLAN: 1. Clonidine 0.1 twice a day if needed but the patient's family said that ever since she was changed from Diovan to Cozaar this thing has happened. 2. Will put her back on Diovan 160/12.5 p.o. daily. TIME SPENT: More than 30 minutes. Plan and coordination of the patient's care discussed in the presence of nurse. KAMLA
[2019-07-24] MEDS: PLETAL PO SCH (17:22)
[2019-07-24] MEDS ORDERED: NON-FORMULARY MEDICATION (Simvastatin [Simvastatin] 20 MG) PO SCH (18:00)
[2019-07-24] MEDS ORDERED: ZOCOR PO SCH (18:00)
[2019-07-24] MEDS ORDERED: AMLODIPINE 10 MG PO SCH (21:00)
[2019-07-25] MEDS: PLETAL PO SCH (05:43)
[2019-07-25 05:54] LABS: HEMATOCRIT 39.2 % (37.0-47.0)
[2019-07-25] MEDS ORDERED: NON-FORMULARY MEDICATION (Glipizide [Glipizide] 10 MG) PO SCH (08:00)
[2019-07-25] MEDS ORDERED: TRADJENTA PO SCH (09:00)
[2019-07-25] MEDS ORDERED: PLAVIX PO SCH (09:00)
[2019-07-25 10:07] VITALS: BP 149/64; TEMP 98.1
[2019-07-25] MEDS: DIOVAN PO SCH (10:18)
[2019-07-25] MEDS: HYDROCHLOROTHIAZIDE PO SCH (10:18)
[2019-07-25] MEDS ORDERED: PLETAL PO SCH (17:00)
--- NOTE | 2019-07-28 10:47 | PN ---
DATE OF SERVICE: 07/25/19 SUBJECTIVE: 79-year-old white female hospitalized with uncontrolled hypertension. Condition has improved. She is feeling a lot better and wants to go home. REVIEW OF SYSTEMS: CONSTITUTIONAL: No night sweats. No fatigue, malaise, lethargy. No fever or chills. HEENT: Eyes: No visual changes. No eye pain. No eye discharge. ENT: No runny nose. No epistaxis. No sinus pain. No sore throat. No odynophagia. No congestion. RESPIRATORY: No cough, no congestion. No hemoptysis. No shortness of breath. CARDIOVASCULAR: No angina symptoms. No CHF symptoms. No atypical chest pain for CAD. No palpitations. No PND. No orthopnea. GASTROINTESTINAL: No abdominal pain. No nausea or vomiting. No diarrhea or constipation. No hematemesis. No hematochezia. GENITOURINARY: No urgency. No frequency. No dysuria. No hematuria. No obstructive symptoms. No discharge. No pain. No significant abnormal bleeding. MUSCULOSKELETAL: No musculoskeletal pain; no joint swelling. NEUROLOGICAL: No headache. No neck pain. No syncope. No seizures. No dizziness. PSYCHIATRIC: Not anxious. No depression. No suicidal thoughts. No homicidal thoughts. SKIN: No rash. No lesions. No wounds. ENDOCRINE: No unexplained weight loss. No weight gain. HEMATOLOGIC/LYMPHATIC: No anemia. No purpura. No petechiae. No prolonged or excessive bleeding. No palpable lymph nodes. PHYSICAL EXAMINATION: VITAL SIGNS: Temperature 98.1, pulse 96, respiratory rate 16, blood pressure 149/64, pulse ox 100%. HEENT: Head normocephalic, atraumatic. Eyes: Extraocular muscles are intact. Pupils are equal, round and reactive to light and accommodation. Ears: No lesions. Nose appeared normal. Throat: No exudate or erythema. NECK: Supple. No JVD, no carotid bruit. No lymphadenopathy or thyromegaly. LUNGS: Clear to auscultation. Percussion note normal. Chest symmetrical. HEART: S1, S2, no S3. No murmurs. No cyanosis or clubbing. No ascites. Pulses: Dorsalis pedis and posterior tibial pulses +1 to +2 bilaterally. ABDOMEN: Soft. Nontender. Bowel sounds active. No CVA tenderness. No mass felt. EXTREMITIES: No edema. Full range of motion of all extremities, equal. NEUROLOGIC: No focal deficit. Cranial nerves II through XII are grossly intact. No headache, no double vision or headache. SKIN: Not dry. Intact. Turgor - normal. LYMPHATIC: No palpable lymph nodes/no lymphedema. MUSCULOSKELETAL: Normal joints with no swelling. Muscle tone is normal. LABS: Hemoglobin 13.5, hematocrit 39, WBC 5,500, normal differential, creatinine 0.8, BUN 13, potassium 3.5. ASSESSMENT: 1. Hypertension under control. PLAN: 1. Discharge the patient home. 2. Discontinue Losartan. 3. The patient is on Diovan HCTZ 320/12.5 one tablet daily. 4. Amlodipine one at night as usual. 5. The patient is strongly advised to cut down on fruits, discontinue juices, decrease on the dairy products, cut down on salt intake. DASH diet discussed. 6. Counseling on diet for both hypertension and diabetes. CONDITION: Stable. TIME SPENT: More than 30 minutes. Plan and coordination of the patient's care discussed in the presence of nurse. KAMLA
--- NOTE | 2019-07-28 10:49 | PN ---
BILLIN07/23/19 ADMISSION DAY LEVEL 5 07/24/19 INTERMEDIATE 07/25/19 DISCHARGE - OBSERVATION BOBD
--- NOTE | 2019-07-28 11:38 | SSS ---
DATE OF SERVICE: 07/23/19 - OBSERVATION REASON FOR ADMISSION: Uncontrolled hypertension. HISTORY OF PRESENT ILLNESS: 79-year-old female was at [facility] as an outpatient then noted increased blood pressure and was sent to the Emergency Department; 173/75 blood pressure. Chest x-ray was done and was given Hydralazine 25 mg p.o, Diovan 160 mg p.o. REVIEW OF SYSTEMS: CONSTITUTIONAL: No night sweats. No fatigue, malaise, lethargy. No fever or chills. HEENT: Eyes: No visual changes. No eye pain. No eye discharge. ENT: No runny nose. No epistaxis. No sinus pain. No sore throat. No odynophagia. No ear pain. No congestion. RESPIRATORY: No cough, no congestion. No hemoptysis. No shortness of breath. CARDIOVASCULAR: No angina symptoms. No CHF symptoms. No atypical chest pain for CAD. No palpitations. No orthopnea. No edema. GASTROINTESTINAL: No abdominal pain. No nausea or vomiting. No diarrhea or constipation. No hematemesis. No hematochezia. GENITOURINARY: Continent of bowel and bladder. No dysuria. No hematuria. No obstructive symptoms. No discharge. No pain. No significant abnormal bleeding. MUSCULOSKELETAL: No musculoskeletal pain. No joint swelling. NEUROLOGICAL: Awake, alert, oriented to time, place and person. Positive for dizziness. No headache. No numbness. No neck pain. No syncope. No seizures. The patient is ambulatory in no distress. PSYCHIATRIC: Not anxious. No depression. No suicidal thoughts. No homicidal thoughts. SKIN: No rash. No lesions. No wounds. ENDOCRINE: No unexplained weight loss. No weight gain. HEMATOLOGIC/LYMPHATIC: No anemia. No purpura. No petechiae. No prolonged or excessive bleeding. No palpable lymph nodes. PAST HISTORY: Hypertension Chest pain UTI, E. coli Severe PVD (50% left, 80% right) Chronic kidney disease Generalized anxiety disorder COPD LVH Metabolic syndrome Dyslipidemia Diabetes mellitus type 2 (A1C 7.91 - 03/2019) PERSONAL/FAMILY HISTORY/SOCIAL HISTORY: Arrhythmia, diabetes mellitus - mother. PHYSICAL EXAMINATION: GENERAL: The patient is an 79-year-old -[place] female, awake, alert and oriented times four. VITAL SIGNS: Temperature 97.6, pulse 87, respiratory rate 18, BP 188/84, weight 154 lbs, height 5'2". BMI 28.2. Last BM 07/21/19. Up with Rollator, continent of bowel and bladder. 100% appetite with adequate fluids. HEENT: Head normocephalic, atraumatic. Eyes: Extraocular muscles are intact. Pupils are equal, round and reactive to light and accommodation. Ears: No lesions. Nose appeared normal. Throat: No exudate or erythema. NECK: Supple. No JVD, no carotid bruit. No lymphadenopathy or thyromegaly. LUNGS: Clear to auscultation. Percussion note normal. Chest symmetrical. HEART: S1, S2, no S3. No murmurs. No cyanosis or clubbing. No ascites. Pulses: Dorsalis pedis and posterior tibial pulses +1 to +2 bilaterally. ABDOMEN: Soft. Nontender. Bowel sounds active. No CVA tenderness. No mass felt. EXTREMITIES: No edema. Full range of motion of all extremities, equal. NEUROLOGIC: No focal deficit. Cranial nerves II through XII are grossly intact. No headache, no double vision or headache. SKIN: Not dry. Intact. Turgor - normal. LYMPHATIC: No palpable lymph nodes/no lymphedema. MUSCULOSKELETAL: Normal joints with no swelling. Muscle tone is normal. Old/present records reviewed Office records reviewed. ALLERGIES: NKDA MEDICATIONS: Diovan/HCTZ Glucotrol XL Norvasc Plavix Pletal Tradjenta Zocor LABS/EKG'S/X-RAY/ECHO/ABG: WBC 5.71, hemoglobin 13.8, platelets 229. Sodium 140.1, chloride 107.8, BUN 14.0, glucose 208.9. Chest x-ray (07-23-19) within normal limits, no cardiopulmonary EKG. PROGRESS NOTES: See EMR. Case Discussed with Family: Yes DIAGNOSES: 1. SEVERE LABILE HYPERTENSION 2. CHRONIC KIDNEY DISEASE 3. PERIPHERAL VASCULAR DISEASE PLAN: 1. D/C Losartan 2. Start Start Diovan 320-12.5 one tab p.o. daily 3. Decrease salt. 4. Amlodipine 10 mg at h.s. 5. Goal of blood pressure 135/85 or less discussed. 6. Cardiac rehab. EDUCATION CARRIED OUT ABOUT: Hypertension, DASH diet, low salt diet. TIME SPENT: More than 70 minutes. [facility]
--- NOTE | 2019-07-30 13:36 | PN ---
07/23/2019: Level 5 07/24/2019: Intermediate 07/25/2019: D as in discharge MTDD
== END 2019-07-25 13:32 | disposition home or self-care (01) ==
LOC: ED 13:19 → INTOOBSV 19:32 → MEDSURG B 19:32
PROVIDERS: ADMIT Internal Medicine; ATTEND Internal Medicine

== ENCOUNTER 2019-11-26 15:53 | Inpatient (IN) ==
[2019-11-26 16:51] LABS: HEMATOCRIT 38.7 % (37.0-47.0)
--- NOTE | 2019-11-26 17:00 | DI ---
EXAM: Chest two view, frontal and lateral views. HISTORY: Lower extremity edema. COMPARISON: 07/23/2019. FINDINGS: The heart size is normal. Atherosclerotic calcifications are present. There is no pulmon vinay vascular congestion. The lungs are clear. No pleural effusion or pneumothorax is seen. No acut e osseous abnormality identified. Degenerative changes present in the spine and shoulders. Since prior study, there has been no significant interval change. IMPRESSION: No acute cardiopulmonary process.
--- NOTE | 2019-11-26 17:20 | CT ---
Exam: CT scan of the right ankle without contrast. Date: 11/26/2019. Comparison: None. HISTORY: Pain, erythema and edema. TECHNIQUE: Helical scan of the right ankle was performed. FINDINGS: Edema is present in the soft tissues overlying the ankle and extending over the dorsum of the foot. No focal fluid collection is observed. The mineralization is normal. Subchondral cysts a nd osteophytic spurring is present in both the medial and lateral malleoli. The ankle joint and subt alar joints are maintained. There is a small calcaneal spur. No fracture or dislocation is identifi ed. Impression: There is soft tissue edema extending over the right ankle but without fluid collection o r acute osseous abnormality. The fluid is nonspecific and could be related to cellulitis or possibly congestive heart failure. Suggest correlation. Mild degenerative changes in the medial and lateral compartments of the ankle. Small calcaneal spur.
--- NOTE | 2019-11-26 17:24 | CT ---
Exam: CT scan of the right foot. Date: 11/26/2019. Comparison: None. HISTORY: Edema. TECHNIQUE: Helical scan of the right foot was performed. FINDINGS: There is mild edema in the soft tissues surrounding the foot. The mineralization is john l. Minor degenerative spurring is present off the medial and lateral malleoli. The ankle and subtal ar joints are maintained. There is a small calcaneal spur. Additional enthesis is seen off the mid body of the calcaneus. The bones are intact and no fracture or dislocation is observed. The metatarsal phalangeal joints and interphalangeal joints are maintained. Mild degenerative change s are present at the talonavicular and tarsal navicular joints.. Impression: There is mild soft tissue swelling over the foot which is nonspecific and can be related to edema or cellulitis. Mild degenerative changes of the ankle joint. Calcaneal spur. Mild degenerative changes at the talonavicular and tarsal navicular joints.
--- NOTE | 2019-11-26 17:26 | CT ---
Exam: CT scan of the left foot. Date: 11/26/2019. Comparison: None. HISTORY: Left foot swelling. TECHNIQUE: Helical scan of the left foot was performed. FINDINGS: There is mild edema in the soft tissues overlying the left foot. The mineralization is no rmal. There is mild osteophytic spurring off the medial lateral malleoli. The degenerative enthesis is seen at the insertion of the Achilles tendon. There is a small calcaneal spur. The subtalar lizzie nt is maintained. There is minimal sclerosis at the talonavicular joint. The metatarsal phalangeal joints and interphalangeal joints are maintained. Impression: Mild soft tissue swelling over the left foot which is nonspecific, and can represent souleymane lulitis or fluid overload. Mild degenerative changes in the ankle and foot as described. Calcaneal spur.
--- NOTE | 2019-11-26 17:29 | CT ---
Exam: CT scan of the left ankle. Date: 11/25/2018. Comparison: None. HISTORY: Left ankle swelling. TECHNIQUE: Helical scan of the left ankle was performed. FINDINGS: There is edema in the soft tissues overlying the ankle. The mineralization is normal. Th e ankle and subtalar joints are maintained. An enthesis is seen at the insertion of the Achilles ten don. Small calcaneal spur is present. There are small osteophytes off the medial and lateral malleo li. The bones are intact and no fracture or dislocation is observed. Impression: There is edema in the soft tissues overlying the left ankle which is nonspecific and can be related to cellulitis or edema. Calcaneal spur. Mild degenerative changes in the medial and lateral compartments of the ankle.
--- NOTE | 2019-11-26 17:42 | ED.PDOC ---
General ED Provider: Dr. ALANA CHRIS Chief Complaint: Extremity Swelling/Pain Stated Complaint: Swelling both legs , ankles and feet. C/o pain across foot and ankles. Denies hx of arthritis or previous lower extremity swelling. Time Seen by Physician: 16:15 Mode of Arrival: Wheelchair Information Source: Patient Exam Limitations: No limitations Primary Care Provider: JESSICA SHEEHAN Nursing and Triage Documentation Reviewed and Agree: Yes Does patient meet sepsis criteria?: No System Inflammatory Response Syndrome: Acutely Altered Mental Status Sepsis Protocol: For patient's 13 years and over: Temp is 96.8 and below OR 101 and greater Pulse >90 BPM Resp >20/minute Acutely Altered Mental Status Are patient's symptoms suggestive of a new infection, such as: -Pneumonia -Skin, Soft Tissue -Endocarditis -UTI -Bone, Joint Infection -Implantable Device -Acute Abdominal Infection -Wound Infection -Meningitis -Blood Stream Catheter Infection -Unknown Musculoskeletal Complaint Exam Ankle/Foot Complaint/Exam Location of Injury: Reports Right, Left, Ankle and Foot Mechanism of Injury: Reports No known trauma Onset/Duration: past week Symptoms Are: Reports Still present Onset of Pain: Reports Prior to arrival Initial Severity: Mild Current Severity: Moderate Location: Reports Diffuse Character: Reports Aching and Burning Alleviating: Reports None Aggravating: Reports Movement and Weight bearing Able to Bear Weight: Yes Associated Signs and Symptoms: Reports Swelling, Redness and Bruising Related History: Denies Similar episode Gout Risk Factors: Reports >40 years old, Diabetes, HTN and Hyperlipidemia Related Surgical History: Reports None Lower Extremity Findings: Present Swelling, Abnormal contour, Erythema and Warmth Achilles Tendon Abnormality: No Tenderness: Present Lateral malleolus, Midfoot and Metatarsals Limited Range of Motion: Present Plantarflexion Ankle/Foot Picture: 1. 2. 3. 4. 5. 6. Differential Diagnosis: Cellulitis, Closed Fracture, Gout, Sprain and Tendonitis Review of Systems Review Of Systems Constitutional: Reports No symptoms Eyes: Reports No symptoms Ears, Nose, Mouth, Throat: Reports No symptoms Respiratory: Reports No symptoms Cardiac: Reports No symptoms GI: Reports No symptoms : Reports No symptoms Musculoskeletal: Reports No symptoms, Joint pain and Muscle stiffness Skin: Reports No symptoms Neurological: Reports No symptoms Endocrine: Reports No symptoms Hematologic/Lymphatic: Reports No symptoms All Other Systems: Reviewed and Negative [facility] Medical History CKD (chronic kidney disease) stage 2, GFR 60-89 ml/min COPD (chronic obstructive pulmonary disease) Diabetes Dyslipidemia History of hysterectomy Hypertension LVH (left ventricular hypertrophy) PVD (peripheral vascular disease) Family History Mother Diabetes Mother Arrhythmia Social History Smoking and tobacco status: Former smoker Smoking status stop date: 12/08/18 Alcohol intake: never History of recent travel: No Female Reproductive History Menstrual Hx Hysterectomy: Yes Hx Tubal Ligation: No Physical Exam Physical Exam Appearance: Reports Well-appearing Ill-appearing: Mild Pain Distress: Mild Eyes: Reports GENESIS, EOMI and Conjunctiva clear ENT: Reports Ears normal, Nose normal and Oropharynx normal Neck: Supple Respiratory: Reports Airway patent, Breath sounds clear, Breath sounds equal and Respirations nonlabored Cardiovascular: Reports RRR, Pulses normal, No rub and No murmur GI/: Reports Soft, Nontender, No masses, Bowel sounds normal and No Organomegaly Musculoskeletal: Reports Normal strength, ROM intact, No edema and No calf tenderness Skin: Reports Warm, Dry and Normal color Neurological: Reports Sensation intact, Motor intact, Reflexes intact, Cranial nerves intact, Alert and Oriented Psychiatric: Reports Affect appropriate and Mood appropriate Interpretation Radiology Interpretation Exam Interpreted: CXR and CT Scan (of feet and ankles obtained, reviewed- arthritis changes and cellulitis) Xray Comments: No CHF Physician Notification Case Discussed Physician Notified: Dr Tim smith admission Time of Notification: 17:30 Critical Care Note Critical Care Note Total Time (mins): 30 Course Course Hematology/Chemistry: 11/26/19 16:38 11/26/19 16:38 Orders, Labs, Meds: Lab Review 11/26/19 11/26/19 11/26/19 16:38 16:38 16:38 WBC 5.59 RBC 3.99 L Hgb 12.9 Hct 38.7 MCV 97.0 MCH 32.3 H MCHC 33.3 RDW Coeff of [place] 13.5 Plt Count 212 Immature Gran % (Auto) 0.2 Neut % (Auto) 49.8 Lymph % (Auto) 38.1 [place] % (Auto) 9.1 Eos % (Auto) 2.3 Baso % (Auto) 0.5 Neut # (Auto) 2.8 Lymph # (Auto) 2.1 [place] # (Auto) 0.5 Eos # (Auto) 0.1 Baso # (Auto) 0.0 Immature Gran # (Auto) 0.0 ESR 12 Sodium 139.6 Potassium 4.14 Chloride 105.5 Carbon Dioxide 29.1 Anion Gap 9.14 BUN 22.5 H Creatinine 1.14 Estimated GFR (MDRD) 56.00 BUN/Creatinine Ratio 19.73 Glucose 250.3 H Uric Acid 6.57 H Calcium 9.92 Magnesium 1.92 Total Bilirubin 0.62 AST 20.8 ALT 14.6 Alkaline Phosphatase 103.2 Total Creatine Kinase 52.1 NT-Pro-B Natriuret Pep Total Protein 7.26 Albumin 3.96 Globulin 3.30 Albumin/Globulin Ratio 1.20 11/26/19 16:38 WBC RBC Hgb Hct MCV MCH MCHC RDW Coeff of Anthony Plt Count Immature Gran % (Auto) Neut % (Auto) Lymph % (Auto) [place] % (Auto) Eos % (Auto) Baso % (Auto) Neut # (Auto) Lymph # (Auto) [place] # (Auto) Eos # (Auto) Baso # (Auto) Immature Gran # (Auto) ESR Sodium Potassium Chloride Carbon Dioxide Anion Gap BUN Creatinine Estimated GFR (MDRD) BUN/Creatinine Ratio Glucose Uric Acid Calcium Magnesium Total Bilirubin AST ALT Alkaline Phosphatase Total Creatine Kinase NT-Pro-B Natriuret Pep 84.600 Total Protein Albumin Globulin Albumin/Globulin Ratio Orders Category Date Time Status EKG-(ED ONLY) Stat CARDIO 11/26/19 16:27 Completed CBC W/ AUTO DIFF Stat LAB 11/26/19 16:38 Completed CMP [COMPREHENSIVE METABOLIC PANEL] Stat LAB 11/26/19 16:38 Completed CPK [CREATINE KINASE] Stat LAB 11/26/19 16:38 Completed ESR Stat LAB 11/26/19 16:38 Completed MAGNESIUM Stat LAB 11/26/19 16:38 Completed NT-PROBNP Stat LAB 11/26/19 16:38 Completed URIC ACID Stat LAB 11/26/19 16:38 Completed Acetaminophen [Tylenol] MEDS 11/26/19 17:57 Discontinued 650 mg PO ONCE STA Cefazolin Sodium/Dextrose,Iso [Ancef 1 gm/50 ml D5w] MEDS 11/26/19 18:00 Active 1 gm in 50 ml IV Q8HR Dexamethasone 4 mg/ml Inj [Decadron 4 mg/ml Sdv] MEDS 11/26/19 18:00 Active 4 mg IVP Q12HR Furosemide [Lasix] MEDS 11/26/19 17:56 Discontinued 40 mg IVP ONCE STA CHEST, 2 VIEWS PA & LAT Stat RADS 11/26/19 16:[address] ANKLE LEFT WITHOUT CONTRAST Stat RADS 11/26/19 16:[address] ANKLE RIGHT WO CONTRAST Stat RADS 11/26/19 16:[address] FOOT LEFT WITHOUT CONTRAST Stat RADS 11/26/19 16:[address] FOOT RIGHT WITHOUT CONTRAST Stat RADS 11/26/19 16:27 Completed Medications Generic Name Dose Route Start Last Admin Trade Name Freq PRN Reason Stop Dose Admin Amlodipine Besylate 10 mg 11/26/19 21:00 Norvasc PO BEDTIME SUNIL Clopidogrel Bisulfate 75 mg 11/27/19 09:00 Plavix PO DAILY SUNIL Dexamethasone Sodium Phosphate 4 mg 11/26/19 18:00 Decadron 4 Mg/Ml Sdv IVP Q12HR SUNIL Enoxaparin Sodium 40 mg 11/26/19 18:30 Lovenox SUBCUT DAILY SUNIL Glipizide 10 mg 11/27/19 09:00 Glucotrol Xl PO DAILY SUNIL Cefazolin Sodium/Dextrose 1 gm in 50 mls @ 75 mls/hr 11/26/19 18:00 Ancef 1 Gm/50 Ml D5w IV 11/29/19 17:59 Q8HR SUNIL Potassium Chloride/Sodium Chloride 1,000 mls @ 50 mls/hr 11/26/19 18:00 Sodium Chloride 0.9%-Kcl 20 Meq IV .Q20H SUNIL Linagliptin 5 mg 11/27/19 09:00 Tradjenta PO DAILY SUNIL Non-Formulary Medication 1 tab 11/26/19 18:15 Valsartan-Hydrochlorothiazide [Diovan Hct] PO DAILY SUNIL Simvastatin 20 mg 11/26/19 21:00 Zocor PO BEDTIME SUNIL Discontinued Medications Generic Name Dose Route Start Last Admin Trade Name Freq PRN Reason Stop Dose Admin Acetaminophen 650 mg 11/26/19 17:57 Tylenol PO 11/26/19 17:58 ONCE STA Furosemide 40 mg 11/26/19 17:56 Lasix IVP 11/26/19 17:57 ONCE STA Vital Signs: Temp Pulse Resp BP Pulse Ox 06/18/20 15:53 99.1 F 92 H 18 155/68 H 96 Discharge Plan Discharge Patient Disposition: ADMITTED INPATIENT Discharge Problem: Cellulitis in diabetic foot, Hypertension, Dyslipidemia, Edema of the upper extremity, Type II diabetes mellitus, Peripheral vascular insufficiency ED Provider: ALANA CHRIS
[2019-11-26] MEDS ORDERED: LASIX IVP STA (17:56)
[2019-11-26] MEDS ORDERED: TYLENOL PO STA (17:57)
[2019-11-26] MEDS: DECADRON 4 MG/ML SDV IVP SCH ×2 (18:13→21:17)
[2019-11-26] MEDS: ANCEF 1 GM/50 ML D5W 1 GM/50 ML BAG IV SCH ×2 (18:14→21:31)
[2019-11-26 18:33] VITALS: BMI 31.1
[2019-11-26] MEDS: SODIUM CHLORIDE 0.9%-KCL 20 MEQ 1,000 ML IV SCH (18:36)
[2019-11-26] MEDS: LOVENOX SUBCUT SCH (21:19)
[2019-11-26] MEDS: NORVASC PO SCH (21:19)
[2019-11-26] MEDS: ZOCOR PO SCH (21:19)
[2019-11-27] MEDS: ANCEF 1 GM/50 ML D5W 1 GM/50 ML BAG IV SCH ×3 (05:07→20:52)
[2019-11-27 05:34] LABS: HEMATOCRIT 40.8 % (37.0-47.0)
[2019-11-27] MEDS ORDERED: GLUCOTROL XL PO SCH (08:30)
[2019-11-27] MEDS: HYDROCHLOROTHIAZIDE PO SCH (08:32)
[2019-11-27] MEDS: DIOVAN PO SCH (08:32)
[2019-11-27] MEDS: TRADJENTA PO SCH (08:32)
[2019-11-27] MEDS: PLAVIX PO SCH (08:33)
[2019-11-27] MEDS: LOVENOX SUBCUT SCH (08:33)
[2019-11-27] MEDS: DECADRON 4 MG/ML SDV IVP SCH (08:37)
[2019-11-27] MEDS: GLUCOTROL XL PO SCH (09:20)
--- NOTE | 2019-11-27 10:15 | PCM.PROG ---
Attending Provider: ATTENDING PROVIDER: Dr. JESSICA SHEEHAN DATE OF SERVICE: 11/27/19 SUBJECTIVE: This 79 year old AA/BLACK F was hospitalized 11/26/19 hospitalized with cellulitis of both lower ankles and feet. The patient seems to have improved texture of the skin with practically no swelling. She is afebrile. REVIEW OF SYSTEMS: CONSTITUTIONAL: No night sweats. No fatigue, malaise, lethargy. No fever or chills. HEENT: Eyes: No visual changes. No eye pain. No eye discharge. ENT: No runny nose. No epistaxis. No sinus pain. No odynophagia. No congestion. RESPIRATORY: No cough, no congestion. No hemoptysis. No shortness of breath. CARDIOVASCULAR: No angina symptoms. No CHF symptoms. No atypical chest pain for CAD. No palpitations. No orthopnea.. GASTROINTESTINAL: No abdominal pain. No nausea or vomiting. No diarrhea or constipation. No hematemesis. No hematochezia. GENITOURINARY: No urgency. No frequency. No dysuria. No hematuria. No obstructive symptoms. No discharge. No pain. No significant abnormal bleeding. MUSCULOSKELETAL: No musculoskeletal pain; no joint swelling. NEUROLOGICAL: Awake, alert, oriented to time, place and person. No headache. No neck pain. No syncope. No seizures. No dizziness. PSYCHIATRIC: Not anxious. No depression. No suicidal thoughts. No homicidal thoughts. SKIN: No rash. No lesions. No wounds. ENDOCRINE: No unexplained weight loss. No weight gain. HEMATOLOGIC/LYMPHATIC: No anemia. No purpura. No petechiae. No prolonged or excessive bleeding. No palpable lymph nodes. PHYSICAL EXAMINATION: GENERAL: The patient is awake, alert and oriented, lying/sitting in bed in no distress. VITAL SIGNS: Temperature 98.1 F, Pulse 83, Respiratory Rate 18, BP 144/73, Pulse Ox 98% HEENT: Head normocephalic, atraumatic. Eyes: Extraocular muscles are intact. Pupils are equal, round and reactive to light and accommodation. Ears: No lesions. Nose appeared normal. Throat: No exudate or erythema. NECK: Supple. No JVD, no carotid bruit. No lymphadenopathy or thyromegaly. LUNGS: Clear to auscultation. Percussion note normal. Chest symmetrical. HEART: S1, S2, no S3. No murmurs. No cyanosis or clubbing. No ascites. Pulses: Dorsalis pedis and posterior tibial pulses +1 to +2 both sides. ABDOMEN: Soft. Non-tender. Bowel sounds active. No CVA tenderness. No mass felt. EXTREMITIES: No edema noted. She has puckered skin noted but seems to be much better than yesterday. Full range of motion of all extremities, equal. NEUROLOGIC: No focal deficit. Cranial nerves II through XII are grossly intact. No headache, no double vision or headache. SKIN: Warm and dry. Intact. Turgor-normal. LYMPHATIC: No palpable lymph nodes/no lymphedema. MUSCULOSKELETAL: Normal joints with no swelling. Muscle tone is normal. LAB REVIEW: 11/27/19 05:20 11/27/19 05:20 11/27/19 05:20: WBC 5.80, RBC 4.27, Hgb 13.8, Hct 40.8, MCV 95.6, MCH 32.3 H, MCHC 33.8, RDW Coeff of Anthony 13.2, Plt Count 257, Immature Gran % (Auto) 0.5, Neut % (Auto) 79.3 H, Lymph % (Auto) 18.3, [place] % (Auto) 1.7, Eos % (Auto) 0.0, Baso % (Auto) 0.2, Neut # (Auto) 4.6, Lymph # (Auto) 1.1, [place] # (Auto) 0.1 L, Eos # (Auto) 0.0, Baso # (Auto) 0.0, Immature Gran # (Auto) 0.0 11/27/19 05:20: Sodium 138.5, Potassium 4.20, Chloride 105.1, Carbon Dioxide 25.0, Anion Gap 12.60, BUN 22.9 H, Creatinine 1.16, Estimated GFR (MDRD) 54.00, BUN/Creatinine Ratio 19.74, Glucose 408.2 H D, Calcium 10.04, Total Bilirubin 0.50, AST 25.6, ALT 17.5, Alkaline Phosphatase 111.5, Total Protein 7.77, Albumin 4.19, Globulin 3.58, Albumin/Globulin Ratio 1.17 11/26/19 16:38: NT-Pro-B Natriuret Pep 84.600 11/26/19 16:38: Sodium 139.6, Potassium 4.14, Chloride 105.5, Carbon Dioxide 29.1, Anion Gap 9.14, BUN 22.5 H, Creatinine 1.14, Estimated GFR (MDRD) 56.00, BUN/Creatinine Ratio 19.73, Glucose 250.3 H, Uric Acid 6.57 H, Calcium 9.92, Magnesium 1.92, Total Bilirubin 0.62, AST 20.8, ALT 14.6, Alkaline Phosphatase 103.2, Total Creatine Kinase 52.1, Total Protein 7.26, Albumin 3.96, Globulin 3.30, Albumin/Globulin Ratio 1.20 11/26/19 16:38: ESR 12 11/26/19 16:38: WBC 5.59, RBC 3.99 L, Hgb 12.9, Hct 38.7, MCV 97.0, MCH 32.3 H, MCHC 33.3, RDW Coeff of Anthony 13.5, Plt Count 212, Immature Gran % (Auto) 0.2, Neut % (Auto) 49.8, Lymph % (Auto) 38.1, [place] % (Auto) 9.1, Eos % (Auto) 2.3, Baso % (Auto) 0.5, Neut # (Auto) 2.8, Lymph # (Auto) 2.1, [place] # (Auto) 0.5, Eos # (Auto) 0.1, Baso # (Auto) 0.0, Immature Gran # (Auto) 0.0 ASSESSMENT: Please see below. 1. Cellulitis/edema bilateral lower ankles and feet seems to have subsided. PLAN: 1 Continue Ancef. 2. D/C steroids. 3. Continue Accu-Cheks with coverage. Plan and coordination of the patient's care discussed in the presence of Well Drill Operator and nurse. CONDITION: Stable SCRIBED BY: AYESHA MARAVILLA [employer] Well Cable Tool Operator scribed while in presence of service performed by Dr. JESSICA SHEEHAN on 11/27/19 ([id number])
--- NOTE | 2019-11-27 11:43 | RS.PTINEVL ---
Subjective - Patient information Date of Evaluation: 11/27/19 Date of Arrival on Unit: 11/26/19 Admitted From:: Home Diagnosis: cellulitis, DM. PVD Usual Living Arrangement: dtr Home Environment: House, Level/No stairs Medical History: Hypertension, COPD, Diabetes, Arthritis Medical History Comments:: PVD, LVH, chronic kidney disease LATEX ALLERGY?: No Surgical History: Hysterectomy Medications: see chart Subjective Information/ Patient Comments:: pt states that she would like to try to walk. States she needs to exercise. - Level of function Prior to this admission, the patient could do the following:: Independent ADL's, Independent Ambulation Current Level of Function: Partially Dependent Current Equipment Used at Home: rollator Interventions - Objective Patient Orientation: Person, Place, Time, Situation Current Interventions: IV's, Telemetry Observation: pt with non pitting edema BLE Range of Motion - ROM Right Upper Extremity AROM: WFL's Left Upper Extremity AROM: WFL's Right Lower Extremity AROM: WFL's Left Lower Extremity AROM: WFL's Muscle Strength - Muscle Strength Right Upper Extremity Strength: Mild Weakness (grossly 4-/5) Left Upper Extremity Strength: Mild Weakness (grossly 4-/5) Right Lower Extremity Strength: Mild Weakness (hip flex 4-/5, knee flex/ext 4/5, ankle df/PF 4/5) Left Lower Extremity Strength: Mild Weakness (hip flex 4-/5, knee flex/ext 4/5, ankle df/PF 4/5) Sensation - Sensation Right Upper Extremity Sensation: Intact/Normal Left Upper Extremity Sensation: Intact/Normal Right Lower Extremity Sensation: Intact/Normal Left Lower Extremity Sensation: Intact/Normal Palpation Palpation Findings: Tenderness Comments:: B lower ext Balance - Sitting Balance and Reactions Static Sitting Balance: Good Dynamic Sitting Balance: Fair - Standing Balance and Reactions Static Standing Balance: Poor Dynamic Standing Balance: Poor Standing Equilibrium Reactions: Delayed Left, Delayed Right Standing Protective Reactions: Delayed Left, Delayed Right Functional Mobility - Bed Mobility Rolling R/L: CGA Supine to Sit: CGA - Transfers Sit to Stand: Min Assist Stand to Sit: Min Assist - Safety Awareness Safety Awareness: Good KAYKAY INDEX SCORE: n/a Ambulation - Ambulation Assistive Device Used: Rolling Walker Orthotic/Prosthetic Device: No Distance: 140ft Assistance needed with Ambulation: CGA, Min Assist Gait Deviations: Forward posture, Short stride, Deviates from path Factors Affecting Ambulation: Decreased Balance, Breathing/O2 Saturation, Weakness, Decreased Safety, Limited Endurance Treatment time - Time with patient Length of Evaluation: 21 Total treatment time: 26 Patient Education - Education Patient Education: Education of Plan of Care Teaching Recipient: Patient Teaching Methods: Discussion, Demonstration Comments: discussion and demonstration of POC as well as safety techniques for gait training. Assessment - Assessment Problem List:: Decreased level of function, Requires training/education, Decreased safety/Risk of falls, Weakness Rehab Potential: Good Further Therapy Indicated?: Yes Candidate for Swing Bed for Therapy Services?: Feel pt may not be a candidate for swing bed due to higher functional level. Evaluation Complexity: HISTORY: Medium, EXAM OF BODY SYSTEMS: Medium, CLINICAL PRESENTATION: Medium, CLINICAL DECISION MAKING: Medium Patient's Goal(s): be able to walk Short Term Goals GOAL #1: pt independent with HEP Goal to be met by: 11/30/19 GOAL #2: pt transferred sup to/from sit SBA Goal to be met by: 11/30/19 GOAL #3: Sit to/from stand CGA Goal to be met by: 11/30/19 GOAL #4: pt amb with rwx 150ft with CGA to SBA with no LOB Goal to be met by: 11/30/19 Clinical Product Manager Goals GOAL #1: pt transfer sup to/from sit to/from stand independently Goal to be met by: 12/02/19 GOAL #2: pt amb functional household distances with rwx with supervision Goal to be met by: 12/02/19 GOAL #3: pt demonstrate improved BLE strength 4+/5 Goal to be met by: 12/02/19 Plan Plan of Care: Therapeutic EX, Therapeutic Activity Other:: gait training Frequency of Treatment: 1-2 X day, as tolerated Duration of Treatment: 5 days Anticipated Discharge Destination: Home Treatment Diagnosis (ICD 10 Codes): Impaired balance R 26.81. difficulty walking R 26.2. weakness M62.81 Has the Physician been added for Co-signature?: Yes
--- NOTE | 2019-11-27 14:21 | PN ---
DATE OF SERVICE: 11/26/19 SUBJECTIVE: The patient was hospitalized with leg swelling. The patient's ankle is swollen on one side with possibility of cellulitis. It could be acute gouty arthritis. Calf muscles are nontender. Cardiovascular status is stable. The patient is going to be on Lasix. Will give 1 cc of Decadron. The patient's blood sugar is more than 200. Will put her on sliding scale coverage. Elevate the legs. CONDITION: Stable. TIME SPENT: More than 30 minutes. Plan and coordination of the patient's care discussed in the presence of nurse. KAMLA
[2019-11-27] MEDS: SODIUM CHLORIDE 0.9%-KCL 20 MEQ 1,000 ML IV SCH (16:11)
[2019-11-27] MEDS: ZOCOR PO SCH (20:51)
[2019-11-27] MEDS: NORVASC PO SCH (20:51)
[2019-11-28 09:43] LABS: HEMATOCRIT 36.5 % (37.0-47.0)
[2019-11-28] MEDS: DIOVAN PO SCH (10:54)
[2019-11-28] MEDS: GLUCOTROL XL PO SCH (10:54)
[2019-11-28] MEDS: ANCEF 1 GM/50 ML D5W 1 GM/50 ML BAG IV SCH ×3 (10:54→20:32)
[2019-11-28] MEDS: PLAVIX PO SCH (10:55)
[2019-11-28] MEDS: LOVENOX SUBCUT SCH (10:55)
[2019-11-28] MEDS: HYDROCHLOROTHIAZIDE PO SCH (10:55)
[2019-11-28] MEDS: TRADJENTA PO SCH (10:56)
[2019-11-28] MEDS: HUMULIN R SUBCUT PRN ×3 (11:44→20:33)
[2019-11-28] MEDS: SODIUM CHLORIDE 0.9%-KCL 20 MEQ 1,000 ML IV SCH (12:02)
[2019-11-28] MEDS: NORVASC PO SCH (20:32)
[2019-11-28] MEDS: ZOCOR PO SCH (20:32)
[2019-11-29 05:41] LABS: HEMATOCRIT 39.1 % (37.0-47.0)
[2019-11-29] MEDS: ANCEF 1 GM/50 ML D5W 1 GM/50 ML BAG IV SCH (05:51)
[2019-11-29] MEDS: HUMULIN R SUBCUT PRN ×4 (06:18→20:50)
[2019-11-29] MEDS: DIOVAN PO SCH (08:04)
[2019-11-29] MEDS: HYDROCHLOROTHIAZIDE PO SCH (08:04)
[2019-11-29] MEDS: TRADJENTA PO SCH (08:05)
[2019-11-29] MEDS: PLAVIX PO SCH (08:05)
[2019-11-29] MEDS: GLUCOTROL XL PO SCH (08:05)
[2019-11-29] MEDS: LOVENOX SUBCUT SCH (08:05)
[2019-11-29] MEDS ORDERED: TYLENOL PO STA (09:10)
[2019-11-29] MEDS: KEFLEX PO SCH ×2 (15:01→20:50)
[2019-11-29] MEDS: ZOCOR PO SCH (20:50)
[2019-11-29] MEDS: NEURONTIN PO SCH (20:50)
[2019-11-29] MEDS: NORVASC PO SCH (20:50)
[2019-11-30 05:28] VITALS: BP 123/75; TEMP 97
[2019-11-30] MEDS: HUMULIN R SUBCUT PRN (06:23)
[2019-11-30] MEDS: KEFLEX PO SCH (06:23)
--- NOTE | 2019-11-30 08:50 | PCM.PROG ---
Attending Provider: ATTENDING PROVIDER: Dr. JESSICA SHEEHAN This patient is seen with Krystal Quan, Nurse Practitioner. DATE OF SERVICE: 11/30/19 SUBJECTIVE: This 79 year old AA/BLACK F was hospitalized 11/26/19. The patient is resting comfortably. Legs have significantly improved. The patient will be discharged back home today. REVIEW OF SYSTEMS: CONSTITUTIONAL: No night sweats. No fatigue, malaise, lethargy. No fever or chills. Weakness. HEENT: Eyes: No visual changes. No eye pain. No eye discharge. ENT: No runny nose. No epistaxis. No sinus pain. No odynophagia. No congestion. RESPIRATORY: No cough, no congestion. No hemoptysis. No shortness of breath. CARDIOVASCULAR: No angina symptoms. No CHF symptoms. No atypical chest pain for CAD. No palpitations. No orthopnea.. GASTROINTESTINAL: No abdominal pain. No nausea or vomiting. No diarrhea or constipation. No hematemesis. No hematochezia. GENITOURINARY: No urgency. No frequency. No dysuria. No hematuria. No obstru ctive symptoms. No discharge. No pain. No significant abnormal bleeding. MUSCULOSKELETAL: No musculoskeletal pain; no joint swelling. NEUROLOGICAL: Awake, alert, oriented to time, place and person. No headache. No neck pain. No syncope. No seizures. No dizziness. PSYCHIATRIC: Not anxious. No depression. No suicidal thoughts. No homicidal thoughts. Intermittent confusion. SKIN: No rash. No lesions. No wounds. ENDOCRINE: No unexplained weight loss. No weight gain. HEMATOLOGIC/LYMPHATIC: No anemia. No purpura. No petechiae. No prolonged or excessive bleeding. No palpable lymph nodes. PHYSICAL EXAMINATION: GENERAL: The patient is awake, alert and oriented to person, lying in bed in no distress. VITAL SIGNS: Temperature 97.0 F, Pulse 63, Respiratory Rate 18, BP 123/75, Pulse Ox 99% HEENT: Head normocephalic, atraumatic. Eyes: Extraocular muscles are intact. Pupils are equal, round and reactive to light and accommodation. Ears: No lesions. Nose appeared normal. Throat: No exudate or erythema. NECK: Supple. No JVD, no carotid bruit. No lymphadenopathy or thyromegaly. LUNGS: Diminished breath sounds. Clear to auscultation. Percussion note normal. Chest symmetrical. HEART: S1, S2, no S3. No murmurs. No cyanosis or clubbing. No ascites. Pulse s: Dorsalis pedis and posterior tibial pulses +1 to +2 both sides. ABDOMEN: Soft. Non-tender. Bowel sounds active. No CVA tenderness. No mass felt. EXTREMITIES: No leg edema. Full range of motion of all extremities, equal. NEUROLOGIC: No focal deficit. Cranial nerves II through XII are grossly intact. No headache, no double vision or headache. SKIN: Not dry. Intact. Turgor-normal. LYMPHATIC: No palpable lymph nodes/no lymphedema. MUSCULOSKELETAL: Normal joints with no swelling. Muscle tone is normal. LAB REVIEW: 11/30/19 04:25 11/30/19 04:25 11/30/19 04:25: Sodium 135.4, Potassium 4.03, Chloride 101.9, Carbon Dioxide 27.6, Anion Gap 9.93, BUN 22.6 H, Creatinine 1.08, Estimated GFR (MDRD) 59.00, BUN/Creatinine Ratio 20.92, Glucose 193.8 H, Calcium 9.45, Total Bilirubin 0.43, AST 27.1, ALT 14.5, Alkaline Phosphatase 84.4, Total Protein 6.41, Albumin 3.36 L, Globulin 3.05, Albumin/Globulin Ratio 1.10 11/30/19 04:25: WBC 7.17, RBC 4.09 L, Hgb 13.3, Hct 39.0, MCV 95.4, MCH 32.5 H, MCHC 34.1, RDW Coeff of Anthony 13.2, Plt Count 210, Immature Gran % (Auto) 0.4, Neut % (Auto) 41.9 L, Lymph % (Auto) 41.0, Chase % (Auto) 12.1 H, Eos % (Auto) 3.8, Baso % (Auto) 0.8, Neut # (Auto) 3.0, Lymph # (Auto) 2.9, Chase # (Auto) 0.9, Eos # (Auto) 0.3, Baso # (Auto) 0.1, Immature Gran # (Auto) 0.0 ASSESSMENT: Please see below. 1. Bilateral lower extremity cellulitis 2. Diabetes Mellitus type 2 3. Peripheral vascular disease 4. Dementia PLAN: 1. Followup in the office next week 2. Keflex 500mg ITD times 7 days. Plan and coordination of the patient's care discussed in the presence of Paid Search Analyst and nurse. SCRIBED BY: Naeem WILLOUGHBY scribed while in presence of service performed by Dr. Sheehan/Krystal Quan APRN on 11/30/19 ([id number])
[2019-11-30] MEDS: GLUCOTROL XL PO SCH (09:09)
[2019-11-30] MEDS: TRADJENTA PO SCH (09:09)
[2019-11-30] MEDS: HYDROCHLOROTHIAZIDE PO SCH (09:09)
[2019-11-30] MEDS: DIOVAN PO SCH (09:09)
[2019-11-30] MEDS: NEURONTIN PO SCH (09:09)
[2019-11-30] MEDS: PLAVIX PO SCH (09:09)
[2019-11-30] MEDS: LOVENOX SUBCUT SCH (09:10)
--- NOTE | 2019-11-30 10:55 | CM.DICTOOL ---
ADMISSION: 11/26/19 17:57 DISCHARGE: NOVEMBER 30, 2019 DATE OF SERVICE: 11/30/19 FINAL DIAGNOSIS CELLULITIS, LOWER EXTREMITIES DIABETES, TYPE 2 A1C 9.9 08/07/2019, NON-COMPLIANT- REFUSES INSULIN CHRONIC KIDNEY DISEASE, STAGE 2 COPD DYSLIPIDEMIA PERIPHERAL VASCULAR DISEASE GENERALIZED ANXIETY DISORDER HISTORY OF TOBACCO USE METABOLIC SYNDROME NON-COMPLIANT DIET,LIFESTYLE,MEDICATIONS AND FOLLOW -UP ECHOCARDIOGRAM 03/2019 LVEF 65% NORMAL ECHOCARDIOGRAM LAST VITALS Temp Pulse Resp BP Pulse Ox 97.0 F L 63 18 123/75 99 11/30/19 05:21 11/30/19 05:21 11/30/19 05:21 11/30/19 05:21 11/30/19 05:21 TAKE THESE MEDICATIONS AT HOME Amlodipine Besylate (Norvasc) 5 mg PO BEDTIME [facility] --- ( CHANGED ) Last Admin: 11/29/19 20:50 Dose: 5 mg Documented by: Cephalexin (Keflex) 500 mg PO Q8HR [facility] ---- ( NEW) Stop: 12/05/19 23:59 Last Admin: 11/30/19 06:23 Dose: 500 mg Documented by: Clopidogrel Bisulfate (Plavix) 75 mg PO DAILY [facility] Last Admin: 11/30/19 09:09 Dose: 75 mg Documented by: Gabapentin (Neurontin) 200 mg PO BID [facility] ---- ( NEW ) Last Admin: 11/30/19 09:09 Dose: 200 mg Documented by: [facility] [place] Last Admin: 11/30/19 09:09 Dose: 10 mg Documented by: Linagliptin (Tradjenta) 5 mg PO DAILY [facility] Last Admin: 11/30/19 09:09 Dose: 5 mg Documented by: Simvastatin (Zocor) 20 mg PO BEDTIME [facility] Last Admin: 11/29/19 20:50 Dose: 20 mg Documented by: DIANE HCT 320 MG / 12.5 MG PO DAILY CILOSTAZOL 100 MG PO BID ---- ( HOME MED ) ALLERGIES No Known Drug Allergies Adverse Reaction (Verified 11/26/19 15:57) DISCONTINUED MEDICATIONS NONE NEW PRESCRIPTIONS: Cephalexin (Keflex) 500 mg PO Q8HR [facility] ---- ( NEW) Gabapentin (Neurontin) 200 mg PO BID [facility] ---- ( NEW ) Amlodipine Besylate (Norvasc) 5 mg PO BEDTIME [facility] --- ( CHANGED ) SMOKING: NON- APPLICABLE DISEASE SPECIFIC EDUCATION: CELLULITIS HYPERTENSION WEAKNESS COVID LAB REVIEW: 11/30/19 04:25 11/30/19 04:25 11/30/19 04:25: Sodium 135.4, Potassium 4.03, Chloride 101.9, Carbon Dioxide 27.6, Anion Gap 9.93, BUN 22.6 H, Creatinine 1.08, Estimated GFR (MDRD) 59.00, BUN/Creatinine Ratio 20.92, Glucose 193.8 H, Calcium 9.45, Total Bilirubin 0.43, AST 27.1, ALT 14.5, Alkaline Phosphatase 84.4, Total Protein 6.41, Albumin 3.36 L, Globulin 3.05, Albumin/Globulin Ratio 1.10 11/30/19 04:25: WBC 7.17, RBC 4.09 L, Hgb 13.3, Hct 39.0, MCV 95.4, MCH 32.5 H, MCHC 34.1, RDW Coeff of Anthony 13.2, Plt Count 210, Immature Gran % (Auto) 0.4, Neut % (Auto) 41.9 L, Lymph % (Auto) 41.0, Lea % (Auto) 12.1 H, Eos % (Auto) 3.8, Baso % (Auto) 0.8, Neut # (Auto) 3.0, Lymph # (Auto) 2.9, Lea # (Auto) 0.9, Eos # (Auto) 0.3, Baso # (Auto) 0.1, Immature Gran # (Auto) 0.0 PLAN: DISCHARGE HOME TODAY: SATURDAY NOVEMBER 30, 2019 HOME INDEPENDENTLY WITH FAMILY ACTIVITY: UP TOLERATED WITH WALKER, FOLLOW PHYSICAL THERAPY GUIDELINES. FREQUENT REST PERIODS AND ELEVATE LEGS MUCH POSSIBLE NO STRENUOUS ACTIVITY DIET:1800 ADA JESSE DIET WITH BEDTIME SNACKS CHECK BLOOD SUGARS BEFORE FOLLOW UP : DR SHEEHAN/MARGARETTE JACQUESSAFE AND VAULT INSTALLER/ENRIQUE CHADWICK APRN MONDAY DECEMBER 09, 2019 @ 130 PM [facility] OUTPATIENT PHYSICAL THERAPY, APPOINTMENT MONDAY, DECEMBER 02, 2019 @ 130 PM CODE STATUS : FULL CODE MRS PETTY IS ALERT AND ORIENTED X 4. SHE REPORTS SLIGHT PAIN TO LT LATERAL FOOT 2/10 AT REST. ONCE UP AND WALKING WITH THERAPY DEPARTMENT, NO FURTHER PAIN. SHE USES A WHEELED WALKER AND HAS ONE AT HOME. GOING TO FOLLOW UP WITH A PT APPOINTMENT OUTPATIENT. SKIN WARM AND DRY AND INTACT. NUTRITIONAL AND FLUID INTACT GOOD. CONTINENT OF BOWEL AND BLADDER. LAST BM 11/30/2019. MD MARGARETTE PEDROZA APRN ALYCE HANNAN, APRN
--- NOTE | 2019-11-30 13:50 | PN ---
DATE OF SERVICE: 11/29/2019 SUBJECTIVE: 79 year old black female hospitalized with cellulitis of both feet. The patient's cellulitis resolved completely. The patient's condition seems to have improved. The patient is diabetic. The blood sugar is fluctuating on the higher side. The patient is complaining of neuropathy type of pain shooting pain especially at night. REVIEW OF SYSTEMS: CONSTITUTIONAL: No night sweats. No fatigue, malaise, lethargy. No fever or chills. HEENT: Eyes: No visual changes. No eye pain. No eye discharge. ENT: No runny nose. No epistaxis. No sinus pain. No sore throat. No odynophagia. No congestion. RESPIRATORY: No cough, no congestion. No hemoptysis. No shortness of breath. CARDIOVASCULAR: No angina symptoms. No CHF symptoms. No atypical chest pain for CAD. No palpitations. No PND. No orthopnea. GASTROINTESTINAL: No abdominal pain. No nausea or vomiting. No diarrhea or constipation. No hematemesis. No hematochezia. GENITOURINARY: No urgency. No frequency. No dysuria. No hematuria. No obstructive symptoms. No discharge. No pain. No significant abnormal bleeding. MUSCULOSKELETAL: No musculoskeletal pain; no joint swelling. NEUROLOGICAL: No headache. No neck pain. No syncope. No seizures. No dizziness. PSYCHIATRIC: Not anxious. No depression. No suicidal thoughts. No homicidal thoughts. SKIN: No rash. No lesions. No wounds. ENDOCRINE: No unexplained weight loss. No weight gain. HEMATOLOGIC/LYMPHATIC: No anemia. No purpura. No petechiae. No prolonged or excessive bleeding. No palpable lymph nodes. PHYSICAL EXAMINATION: VITAL SIGNS: Temperature 97.6, pulse 70, respiratory rate 18, blood pressure 148/78 and pulse ox 98%. HEENT: Head normocephalic, atraumatic. Eyes: Extraocular muscles are intact. Pupils are equal, round and reactive to light and accommodation. Ears: No lesions. Nose appeared normal. Throat: No exudate or erythema. NECK: Supple. No JVD, no carotid bruit. No lymphadenopathy or thyromegaly. LUNGS:Decreased breath sounds but clear to auscultation. Percussion note normal. Chest symmetrical. HEART: S1, S2, no S3. No murmurs. No cyanosis or clubbing. No ascites. Pulses: Dorsalis pedis and posterior tibial pulses +1 to +2 bilaterally. ABDOMEN: Soft. Nontender. Bowel sounds active. No CVA tenderness. No mass felt. EXTREMITIES: No edema. Full range of motion of all extremities, equal. NEUROLOGIC: No focal deficit. Cranial nerves II through XII are grossly intact. No headache, no double vision or headache. SKIN: Not dry. Intact. Turgor - normal. LYMPHATIC: No palpable lymph nodes/no lymphedema. MUSCULOSKELETAL: Normal joints with no swelling. Muscle tone is normal. LABS: Hgb 13.2, hct 39, WBC 7.400 normal differential, creatinine 0.9, BUN 21, potassium 4.09, glucose 211. ASSESSMENT: 1. Diabetic neuropathy 2. Cellulitis, has resolved 3. Diabetes Mellitus 4. Hypertension 5. Dyslipidemia PLAN: 1. Give Neurontin 200mg now and 200mg at night time and see the response 2. Cefazolin will be discontinued and put her on Keflex 3. Continue the rest of the medication as before CONDITION: Stable. TIME SPENT: More than 30 minutes. Plan and coordination of the patient's care discussed in the presence of nurse. KAMLA
--- NOTE | 2019-11-30 14:51 | HP ---
DATE OF SERVICE: 11/26/19 REASON FOR HOSPITALIZATION: Swelling of the extremity with pain and swelling of both legs especially ankles and feet, pain across the foot and ankles. Duration a few days. HISTORY OF PRESENT ILLNESS: 79-year-old black female was admitted through the emergency room with swelling and redness of both feet across with ankle swelling. No history of injury. The patient had x-rays done in the Emergency Room and all were negative for any fracture. The patient's further workup had possibility of cellulitis along with leg edema. The patient has severe hypertension and she is on Norvasc 10 mg and Diovan HCTZ 320/12.5. Norvasc may be causing her to have some swelling. PAST MEDICAL HISTORY: Diabetes Mellitus Dyslipidemia Peripheral arterial disease followed by Dr. Stone Hypertension COPD Severe PAD with 50% left; 80% on right femoral lesion CKD 2 DEANNA LVH Metabolic syndrome History of smoking with COPD on pulmonary rehab for the past 40 weeks REVIEW OF SYSTEMS: CONSTITUTIONAL: Fatigue and weakness. No night sweats. No malaise, lethargy. No fever or chills. HEENT: Eyes: No visual changes. No eye pain. No eye discharge. ENT: No runny nose. No epistaxis. No sinus pain. No sore throat. No odynophagia. No ear pain. No congestion. RESPIRATORY: Mild cough, no congestion. No hemoptysis. No shortness of breath. CARDIOVASCULAR: No angina symptoms. No CHF symptoms. No atypical chest pain for CAD. No palpitations. No PND. No orthopnea. GASTROINTESTINAL: No abdominal pain. No nausea or vomiting. No diarrhea or constipation. No hematemesis. No hematochezia. GENITOURINARY: No urgency. No frequency. No dysuria. No hematuria. No obstructive symptoms. No discharge. No pain. No significant abnormal bleeding. MUSCULOSKELETAL: Swelling of both feet with pain. No joint swelling. No arthritis. NEUROLOGICAL: No headache. No neck pain. No syncope. No seizures. No dizziness. PSYCHIATRIC: Not anxious. No depression. No suicidal thoughts. No homicidal thoughts. SKIN: No rash. No lesions. No wounds. ENDOCRINE: No unexplained weight loss. No weight gain. HEMATOLOGIC/LYMPHATIC: No anemia. No purpura. No petechiae. No prolonged or excessive bleeding. No palpable lymph nodes. PERSONAL/FAMILY/SOCIAL HISTORY: The patient is , lives alone. She quit smoking a long time ago. No alcohol abuse. She does all activities of daily living. MEDICATIONS: Zocor Plavix Glipizide Tradgenta Norvasc Diovan HCTZ ALLERGIES: NKDA PHYSICAL EXAMINATION: VITAL SIGNS: Temperature 99.1, pulse 90, respiratory rate 18, BP 150/68, pulse ox 96%. HEENT: Face symmetrical. Head normocephalic, atraumatic. Eyes: Extraocular muscles are intact. Pupils are equal, round and reactive to light and accommodation. Ears: No lesions. Nose appeared normal. Throat: No exudate or erythema. NECK: Supple. No JVD, no carotid bruit. No lymphadenopathy or thyromegaly. LUNGS: Decreased breath sounds but clear to auscultation. Percussion note normal. Chest symmetrical. HEART: S1, S2, no S3. No murmur. No cyanosis or clubbing. No ascites. Pulses: Dorsalis pedis and posterior tibial pulses +1 to +2 bilaterally. ABDOMEN: Soft. Nontender. Bowel sounds active. No CVA tenderness. No mass felt. EXTREMITIES: Both feet seem to be red and +1 pitting edema on ankles. Full range of motion of all extremities, equal. NEUROLOGIC: No focal deficit. Cranial nerves II through XII are grossly intact. No headache, no double vision or headache. SKIN: Not dry. Intact. Turgor - normal. LYMPHATIC: No palpable lymph nodes/no lymphedema. MUSCULOSKELETAL: Normal joints with no swelling. Muscle tone is normal. LABS: Hemoglobin 12, hematocrit 38, WBC 5,000, normal differential. Creatinine 1.1, BUN 22. Liver profile normal. Pro-BNP 84. ASSESSMENT: 1. BILATERAL CELLULITIS OF ANKLE/EDEMA 2. HISTORY OF SEVERE HYPERTENSION 3. DIABETES MELLITUS - A1C 7.2 ON 10/26 4. DYSLIPIDEMIA 5. PERIPHERAL ARTERIAL DISEASE FOLLOWED BY DR. STONE, 50% LEFT, 80% RIGHT FEMORAL ARTERIES 6. CHRONIC KIDNEY DISEASE STAGE 2 7. GENERALIZED ANXIETY DISORDER WITH LVH 8. METABOLIC SYNDROME 9. HISTORY OF SMOKING WITH COPD ON PULMONARY REHAB PLAN: 1. Admit the patient. 2. Put on Ancef 1 gm q.8hr. 3. 1 cc Decadron now. 4. Continue Plavix and Norvasc. 5. Elevate the legs. CONDITION: Stable. TIME SPENT: More than 70 minutes. MTDD
--- NOTE | 2019-12-01 13:19 | PN ---
DATE OF SERVICE: 11/30/2019 SUBJECTIVE: The patient was seen and examined with the Nurse Practitioner. The patient's condition is stable. She is up and about and doing well. Cardiovascular status is stable. Her blood pressure is normal. Cellulitis practically has resolved. I don't think that the patient had cellulitis. She had just pedal edema with neuropathy type of symptoms. Neurontin seems to be working. The patient is going to be discharged home on Neurontin. CONDITION: Stable. TIME SPENT: More than 30 minutes. Plan and coordination of the patient's care discussed in the presence of nurse. KAMLA
--- NOTE | 2019-12-02 09:33 | DS ---
DATE OF SERVICE: 11/30/19 FINAL DIAGNOSIS: 1. CELLULITIS, LOWER EXTREMITIES 2. DIABETES, TYPE 2, A1C 9.9 08/07/2019, NON-COMPLIANT- REFUSES INSULIN 3. CHRONIC KIDNEY DISEASE, STAGE 2 4. COPD 5. DYSLIPIDEMIA 6. PERIPHERAL VASCULAR DISEASE 7. GENERALIZED ANXIETY DISORDER 8. HISTORY OF TOBACCO USE 9. METABOLIC SYNDROME 10. NON-COMPLIANT DIET, LIFESTYLE, MEDICATIONS AND FOLLOW-UP 11. ECHOCARDIOGRAM 03/2019, LVEF 65%, NORMAL ECHOCARDIOGRAM LAST VITALS Temp Pulse Resp BP Pulse Ox 97.0 F L 63 18 123/75 99 11/30/19 05:21 11/30/19 05:21 11/30/19 05:21 11/30/19 05:21 11/30/19 05:21 DISCHARGE INSTRUCTIONS: 1. DISCHARGE HOME TODAY: SATURDAY NOVEMBER 30, 2019 HOME INDEPENDENTLY WITH FAMILY 2. FOLLOW UP: DR SHEEHAN/MARGARETTE JACQUES,SIZE TESTER/ENRIQUE CHADWICKSIZE TESTER MONDAY DECEMBER 09, 2019 @ 130 PM 3. [facility] OUTPATIENT [facility]YSICAL [facility]ERAPY, APPOINTMENT MONDAY, DECEMBER 02, 2019 @ 130 PM 4. CODE STATUS: FULL CODE 5. CHECK BLOOD SUGARS BEFORE MEDICATIONS AT DISCHARGE: Amlodipine Besylate (Norvasc) 5 mg PO BEDTIME [facility] --- ( CHANGED ) Last Admin: 11/29/19 20:50 Dose: 5 mg Documented by: Cephalexin (Keflex) 500 mg PO Q8HR [facility] ---- ( NEW) Stop: 12/05/19 23:59 Last Admin: 11/30/19 06:23 Dose: 500 mg Documented by: Clopidogrel Bisulfate (Plavix) 75 mg PO DAILY [facility] Last Admin: 11/30/19 09:09 Dose: 75 mg Documented by: Gabapentin (Neurontin) 200 mg PO BID [facility] ---- ( NEW ) Last Admin: 11/30/19 09:09 Dose: 200 mg Documented by: Glipizide (Glucotrol Xl) 10 mg PO DAILYWM [facility] Last Admin: 11/30/19 09:09 Dose: 10 mg Documented by: Linagliptin (Tradjenta) 5 mg PO DAILY [facility] Last Admin: 11/30/19 09:09 Dose: 5 mg Documented by: Simvastatin (Zocor) 20 mg PO BEDTIME [facility] Last Admin: 11/29/19 20:50 Dose: 20 mg Documented by: DIANE HCT 320 MG / 12.5 MG PO DAILY CILOSTAZOL 100 MG PO BID AC ---- ( HOME MED ) NEW PRESCRIPTIONS: Cephalexin (Keflex) 500 mg PO Q8HR [facility] ---- ( NEW) Gabapentin (Neurontin) 200 mg PO BID [facility] ---- ( NEW ) Amlodipine Besylate (Norvasc) 5 mg PO BEDTIME [facility] --- ( CHANGED ) DISCONTINUED MEDICATIONS: NONE DIET INSTRUCTIONS: 1800 ADA JESSE DIET WITH BEDTIME SNACKS ACTIVITY: UP TOLERATED WITH WALKER, FOLLOW PHYSICAL THERAPY GUIDELINES. FREQUENT REST PERIODS AND ELEVATE LEGS MUCH POSSIBLE NO STRENUOUS ACTIVITY SMOKING: NON- APPLICABLE DISEASE SPECIFIC EDUCATION: CELLULITIS HYPERTENSION WEAKNESS [facility] HOSPITAL COURSE: This is an 79-year-old -[place] female who came into the emergency room complaining of swelling and pain in both ankles and feet. She did not have a history of any swelling. She is an uncontrolled diabetic. She is very noncompliant with her diet and medications. She was found to have cellulitis of both lower extremities, admitted, placed on Rocephin 1 gm IV daily. Uric acid was slightly elevated. She was also given 1 cc of Decadron IM times two days. Over the course of 48 hours the swelling and redness significantly improved. On admission she had a temperature of 99.1. This was the only time that she did have any kind of fever. She was also given Lasix two days in a row 40 mg IV. Again, all of this has resolved despite her comorbidities, diabetes, vascular insufficiency. We covered her sugars with sliding scale insulin. She lives with her daughter. We discussed, given her A1C was 9.9, offered insulin therapy and she refuses, refuses any additional medication. She will be sent home on Keflex 500 t.i.d. for the next 5 days and instructed to keep her legs elevated. She was also started on Neurontin 200 mg b.i.d. as she does have diabetic neuropathy. Otherwise, her home medications have been unchanged. Will discharge her in stable condition and followup next week. TIME SPENT: More than 60 minutes. [facility]ITALCicso
--- NOTE | 2019-12-02 10:38 | PN ---
DATE OF SERVICE: 11/28/19 SUBJECTIVE: 79-year-old black female hospitalized with cellulitis of both feet which is kind of unusual. The patient seemed to have it with warmth and redness of both lower extremities. The patient has diabetes, was hospitalized, given IV antibiotics, Cefazolin which seems to be responding to. This morning on physical exam, bilateral feet look nearly practically normal with practically no redness. 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 There was no evidence of any gouty arthritis either. PHYSICAL EXAMINATION: HEENT: Head normocephalic, atraumatic. Eyes: Extraocular muscles are intact. Pupils are equal, round and reactive to light and accommodation. Ears: No lesions. Nose appeared normal. Throat: No exudate or erythema. NECK: Supple. No JVD, no carotid bruit. No lymphadenopathy or thyromegaly. LUNGS: Clear to auscultation. Percussion note normal. Chest symmetrical. HEART: S1, S2, no S3. Grade I to II/ systolic murmur. No cyanosis or clubbing. No ascites. Pulses: Dorsalis pedis and posterior tibial pulses +1 to +2 bilaterally. ABDOMEN: Soft. Nontender. Bowel sounds active. No CVA tenderness. No mass felt. EXTREMITIES: Feet look normal. No edema. Full range of motion of all extremities, equal. NEUROLOGIC: No focal deficit. Cranial nerves II through XII are grossly intact. No headache, no double vision or headache. SKIN: Not dry. Intact. Turgor - normal. LYMPHATIC: No palpable lymph nodes/no lymphedema. MUSCULOSKELETAL: Normal joints with no swelling. Muscle tone is normal. ASSESSMENT: 1. Hypertension seems to not be the issue at the present time. PLAN: 1. Will decrease the dose of Norvasc to 5 mg at night and that may help the swelling part of her legs. 2. Discontinue IV fluids and will cover her blood sugar with insulin. 3. Diet discussed with the patient. 4. Foot care discussed with the patient. There is no evidence of any compromised circulation of the legs. The patient has neuropathy type of pain. We may try Neurontin, will see about it. CONDITION: Stable. TIME SPENT: More than 30 minutes. Plan and coordination of the patient's care discussed in the presence of nurse. KAMLA
== END 2019-11-30 11:15 | disposition home or self-care (01) | DRG 638 ==
LOC: ED 15:53 → MEDSURG B 17:57
PROVIDERS: ADMIT Internal Medicine; ATTEND Internal Medicine
DX: L03.116 Cellulitis of left lower limb; Z91.19 Patient's noncompliance with other medical treatment and regimen; E11.40 Type 2 diabetes mellitus with diabetic neuropathy, unspecified; Z51.81 Encounter for therapeutic drug level monitoring; I10 Essential (primary) hypertension; R60.9 Edema, unspecified; E11.65 Type 2 diabetes mellitus with hyperglycemia; E78.5 Hyperlipidemia, unspecified; I73.9 Peripheral vascular disease, unspecified; I51.7 Cardiomegaly; L03.115 Cellulitis of right lower limb; J44.9 Chronic obstructive pulmonary disease, unspecified; E88.81 Metabolic syndrome and other insulin resistance; E11.628 Type 2 diabetes mellitus with other skin complications; N18.2 Chronic kidney disease, stage 2 (mild); R53.1 Weakness; Z79.899 Other long term (current) drug therapy; F41.1 Generalized anxiety disorder; F03.90 Unspecified dementia, unspecified severity, without behavioral disturbance, psychotic disturbance, mood disturbance, and anxiety